=== PATIENT | male | born 1965 | race Caucasian/White ===

== ENCOUNTER 2016-08-06 16:50 | Inpatient (IN) | payer BC ==
[~2016-08-06] VITALS: Ht 154.9 cm; Wt 130.4 kg
[~2016-08-06 16:50] MED LIST: CART240C4 PO; GLIP10TA6 PO; GLUC1000 PO; NEUR600T PO; RIVA20 PO
[2016-08-06 16:52] VITALS: BP 150/75; PULSE 118; RESP 24; TEMP 100.7; O2SAT 87
--- NOTE | 2016-08-06 19:25 | PD ---
HPI Chief Complaint: Edema Time Seen by Provider: 19:21 Travel History International Travel<30 days: No Contact w/Intl Traveler<30days: No Traveled to known affect area: No History of Present Illness HPI 50-year-old male with history of diabetes, CAD, hypertension, COPD presents to the emergency department for evaluation of right lower extremity edema. Patient states he's noticed right lower extremity becoming more edematous and erythematous over the last 3 days. He states a month "or so" ago he developed a blisterlike wound on his right great toe. He has been caring for himself but it has gotten "quite bad." He states that he has not followed up with a primary care provider for. He has not been on any antibiotics for it. He does have diabetic neuropathy and states he does feel the pain from it but also takes pain medication for chronic back pain as well as medication for his neuropathy. He has also been having subjective fever and chills over the last 2 -3 days. No nausea vomiting. No chest pain or tightness. He has no other symptoms to report. PFSH Past Medical History Autoimmune Disease: No Heart Rhythm Problems: Yes (afib) Cancer: No Cardiovascular Problems: Yes High Cholesterol: No Chemotherapy: No Chest Pain: No Congestive Heart Failure: Yes Diabetes: Yes Diminished Hearing: No Endocrine: Yes Genitourinary: No Hypertension: Yes Immune Disorder: No Musculoskeletal: Yes (BACK INJURY- TAKES PAIN MEDS FOR) Neurologic: Yes (neuropathy) Psychiatric: No Reproductive: No Respiratory: Yes Radiation Therapy: No Thyroid Disease: No Past Surgical History Other Surgery: Yes (2ND RIGHT TOE AMPUTATED r/t injury) Social History Alcohol Use: No Tobacco Use: Yes (2 ppd cigs) Substance Use: No Allergies-Medications (Allergen,Severity, Reaction): Coded Allergies: No Known Allergies (Verified , 08/06/16) Reported Meds & Prescriptions Reported Meds & Active Scripts Active Reported Cartia Xt (Diltiazem ER 24 HR) 240 Mg Caper 240 Mg PO DAILY Gabapentin 600 Mg Tab 600 Mg PO BID Glipizide 5 Mg Tab 5 Mg PO BIDAC Take 30 minutes before a meal Metformin (Metformin HCl) 1,000 Mg Tab 1,000 Mg PO BIDPC With meals Xarelto (Rivaroxaban) 20 Mg Tab 20 Mg PO DAILY Review of Systems Except as stated in HPI: all other systems reviewed are Neg Physical Exam Narrative GENERAL: Well-nourished unkempt male patient, in no acute distress SKIN: Warm and dry. Tape bandage around the right great and second toe. There is erythema of the right anterior distal lower extremity with crusted flaking skin. HEAD: Atraumatic. Normocephalic. EYES: Pupils equal and round. No scleral icterus. No injection or drainage. ENT: No nasal bleeding or discharge. Mucous membranes pink and moist. NECK: Trachea midline. No JVD. CARDIOVASCULAR: Tachycardic rate and rhythm. No murmur appreciated. RESPIRATORY: No accessory muscle use. Coarse, diminished to auscultation. Breath sounds equal bilaterally. GASTROINTESTINAL: Abdomen soft, non-tender, nondistended. Hepatic and splenic margins not palpable. MUSCULOSKELETAL: No obvious deformities. No clubbing. No cyanosis. 2+ right lower extremity edema. NEUROLOGICAL: Awake and alert. No obvious cranial nerve deficits. Motor grossly within normal limits. Normal speech. PSYCHIATRIC: Appropriate mood and affect; insight and judgment normal. Data Data Last Documented VS Vital Signs Date Time Temp Pulse Resp B/P Pulse Ox O2 Delivery O2 Flow Rate FiO2 08/06/16 20:21 131/67 08/06/16 16:52 100.7 118 24 87 Room Air Orders Electrocardiogram (08/06/16 19:11) Complete Blood Count With Diff (08/06/16 19:11) Comprehensive Metabolic Panel (08/06/16 19:11) Prothrombin Time / Inr (Pt) (08/06/16 19:11) Act Partial Throm Time (Ptt) (08/06/16 19:11) Lactic Acid Sepsis Protocol (08/06/16 19:11) Magnesium (Mg) (08/06/16 19:11) Ckmb (Isoenzyme) Profile (08/06/16 19:11) Troponin I (08/06/16 19:11) Urinalysis - C+S If Indicated (08/06/16 19:11) Blood Culture (08/06/16 19:11) Chest, Single Ap (08/06/16 19:11) Foot, Complete ([id number]) (08/06/16 ) Us Leg Venous Doppler (08/06/16 ) Labs Laboratory Tests Test 08/06/16 19:52 White Blood Count 26.6 TH/MM3 Red Blood Count 5.24 MIL/MM3 Hemoglobin 14.6 GM/DL Hematocrit 43.2 % Mean Corpuscular Volume 82.4 FL Mean Corpuscular Hemoglobin 27.8 PG Mean Corpuscular Hemoglobin 33.7 % Concent Red Cell Distribution Width 13.6 % Platelet Count 277 TH/MM3 Mean Platelet Volume 7.8 FL Neutrophils (%) (Auto) 84.1 % Lymphocytes (%) (Auto) 6.3 % Monocytes (%) (Auto) 9.2 % Eosinophils (%) (Auto) 0.1 % Basophils (%) (Auto) 0.3 % Neutrophils # (Auto) 22.3 TH/MM3 Lymphocytes # (Auto) 1.7 TH/MM3 Monocytes # (Auto) 2.4 TH/MM3 Eosinophils # (Auto) 0.0 TH/MM3 Basophils # (Auto) 0.1 TH/MM3 CBC Comment AUTO DIFF Differential Total Cells 100 Counted Neutrophils % (Manual) 78 % Band Neutrophils % 8 % Lymphocytes % 7 % Monocytes % 6 % Neutrophils # (Manual) 23.1 TH/MM3 Myelocytes 1 % Differential Comment FINAL DIFF MANUAL Platelet Estimate NORMAL Platelet Morphology Comment NORMAL Red Cell Morphology Comment NORMAL Prothrombin Time 12.3 SEC Prothromb Time International 1.1 RATIO Ratio Activated Partial 36.0 SEC Thromboplast Time Sodium Level 131 MEQ/L Potassium Level 4.3 MEQ/L Chloride Level 93 MEQ/L Carbon Dioxide Level 29.8 MEQ/L Anion Gap 8 MEQ/L Blood Urea Nitrogen 17 MG/DL Creatinine 0.88 MG/DL Estimat Glomerular Filtration 92 ML/MIN Rate Random Glucose 241 MG/DL Lactic Acid Level 1.2 mmol/L Calcium Level 8.5 MG/DL Magnesium Level 1.7 MG/DL Total Bilirubin 0.6 MG/DL Aspartate Amino Transf 9 U/L (AST/SGOT) Alanine Aminotransferase 22 U/L (ALT/SGPT) Alkaline Phosphatase 102 U/L Total Creatine Kinase 61 U/L Troponin I LESS THAN 0.02 NG/ML Total Protein 7.1 GM/DL Albumin 2.8 GM/DL [facility] Medical Decision Making Medical Screen Exam Complete: Yes Emergency Medical Condition: Yes Medical Record Reviewed: Yes Differential Diagnosis Sepsis versus cellulitis versus DVT versus osteomyelitis Narrative Course 50-year-old male presents to the emergency department for evaluation of right lower extremity erythema and edema. Patient is febrile and tachycardic here. Sepsis protocol is initiated in triage. Once a medical bed becomes available, patient will be transferred and care assumed by that provider. Condition: Stable Shima Guadalupe Aug 06, 2016 19:24
[2016-08-06] MEDS ORDERED: CART240C PO (20:08)
[2016-08-06] MEDS ORDERED: METF1000 PO (20:08)
[2016-08-06] MEDS ORDERED: GABA600T PO (20:08)
[2016-08-06] MEDS ORDERED: XARE20TA PO (20:08)
[2016-08-06] MEDS ORDERED: GLIP5TAB8 PO (20:08)
[2016-08-06 20:16] LABS: AUTOMATED NEUTROPHIL # 22.3 TH/MM3 (1.8-7.7); BASOPHIL # 0.1 TH/MM3 (0-0.2); BASOPHIL % 0.3 % (0.0-2.0); EOSINOPHIL % 0.1 % (0.0-4.0); HEMATOCRIT 43.2 % (39.0-51.0); LYMPH % 6.3 % (9.0-44.0); LYMPHOCYTE # 1.7 TH/MM3 (1.0-4.8); MEAN CELL VOLUME 82.4 FL (80.0-100.0); MEAN CORPUSCULAR HEMOGLOBIN 27.8 PG (27.0-34.0); MEAN CORPUSCULAR HGB CONC 33.7 % (32.0-36.0); MONO % 9.2 % (0.0-8.0); NEUT % 84.1 % (16.0-70.0); PLATELET COUNT 277 TH/MM3 (150-450); RED BLOOD COUNT 5.24 MIL/MM3 (4.50-5.90); RED CELL DISTRIBUTION WIDTH 13.6 % (11.6-17.2); WHITE BLOOD COUNT 26.6 TH/MM3 (4.0-11.0)
[2016-08-06 20:18] LABS: HEMO FLAGS AUTO DIFF
[2016-08-06 20:21] VITALS: BP 131/67
--- NOTE | 2016-08-06 20:31 | RADRPT ---
EXAM DATE/TIME: 08/06/2016 19:10 [facility] COMPARISON: No previous studies available for comparison. INDICATIONS : Sepsis MEDICAL HISTORY : Hypertension. Diabetes mellitus type II. SURGICAL HISTORY : None. ENCOUNTER: Initial ACUITY: 3 days PAIN SCORE: 0/10 LOCATION: Bilateral chest FINDINGS: A single view of the chest demonstrates the lungs to be symmetrically aerated without evidence of mas s, infiltrate or effusion. The cardiomediastinal contours are mildly prominent probably due to techn ique. Osseous structures are intact. CONCLUSION: 1. No acute airspace disease or significant effusion. Richard Marrufo MD on August 06, 2016 at 20:28 Board Certified Radiologist. This report was verified electronically.
[2016-08-06 20:37] LABS: INTERNATIONAL NORMALIZED RATIO 1.1 RATIO; PROTHROMBIN TIME - PATIENT 12.3 SEC (9.8-11.6)
[2016-08-06 20:38] LABS: ANION GAP 8 MEQ/L (5-15); AST (GOT) 9 U/L (15-37); BICARBONATE 29.8 MEQ/L (21.0-32.0); BLOOD UREA NITROGEN 17 MG/DL (7-18); CHLORIDE 93 MEQ/L (98-107); GLOMERULAR FILTRATION RATE 92 ML/MIN (>89); MAGNESIUM 1.7 MG/DL (1.5-2.5); POTASSIUM 4.3 MEQ/L (3.5-5.1); SODIUM (NA) 131 MEQ/L (136-145)
--- NOTE | 2016-08-06 20:40 | RADRPT ---
EXAM DATE/TIME: 08/06/2016 19:11 [facility] COMPARISON: FOOT RIGHT COMPLETE ([id number]), December 11, 2013, 9:33. INDICATIONS : Pain and swelling right foot and lower leg MEDICAL HISTORY : Hypertension. Diabetes mellitus type II. SURGICAL HISTORY : Amputation right 2nd toe ENCOUNTER: Initial ACUITY: 3 days PAIN SCORE: 6/10 LOCATION: Right Foot FINDINGS: Comparison is November 2013. Again seen is amputation of the second toe. There is a suspected Charcot type arthropathy at the tarso-metatarsal joints, especially laterally with subchondral erosive changes. T here is soft tissue swelling of the foot and the great toe with chronic appearing erosive changes sheela und the distal phalanx of the right great toe. No acute fracture. CONCLUSION: 1. Previous amputation of the second toe. Development of suspected Charcot type arthropathy at the ta rsometatarsal joints, especially laterally with subchondral cystic changes on both sides of the tarso metatarsal joints. There is associated soft tissue swelling. Cannot exclude chronic low grade infecti on around the tarsometatarsal joints. Richard Marrufo MD on August 06, 2016 at 20:35 Board Certified Radiologist. This report was verified electronically.
[2016-08-06 20:43] LABS: ALKALINE PHOSPHATASE 102 U/L (45-117); ALT (GPT) 22 U/L (12-78); TOTAL BILIRUBIN ADULT 0.6 MG/DL (0.2-1.0)
--- NOTE | 2016-08-06 20:45 | RADRPT ---
EXAM DATE/TIME: 08/06/2016 19:30 [facility] COMPARISON: No previous studies available for comparison. INDICATIONS : Right leg swelling and redness. MEDICAL HISTORY : Hypertension. Congestive heart failure. Neuropathy. Afib. Back pain. Diabetes. SURGICAL HISTORY : Right toe amputation. ENCOUNTER: Initial ACUITY: 1 day PAIN SCORE: 5/10 LOCATION: Right leg. TECHNIQUE: Venous ultrasound of the leg was performed from the inguinal ligament to the proximal calf. Real-artie e, color Doppler and spectral tracing, compression and augmentation techniques were used. FINDINGS: There is normal compressibility of the deep venous system from the inguinal region to the proximal ca lf. No echogenic clot is seen in the lumen of the common femoral, femoral, popliteal, and posterior tibial veins. There is a normal response of the venous system to proximal and distal augmentation an d respiration. CONCLUSION: 1. Negative for deep venous thrombosis. Enlarged lymph nodes in the right inguinal region. Soft tissu e edema. Richard Marrufo MD on August 06, 2016 at 20:42 Board Certified Radiologist. This report was verified electronically.
[2016-08-06 20:46] LABS: CREATINE KINASE 61 U/L (39-308)
[2016-08-06 20:50] LABS: BANDS 8 % (0-6); MYELOCYTES 1 % (0-0); NEUTROPHIL # MANUAL DIFF 23.1 TH/MM3 (1.8-7.7); PLATELET ESTIMATE SMEAR NORMAL (NORMAL); PLATELET MORPHOLOGY NORMAL (NORMAL); POLYS (SEG NEUTROPHILS) 78 % (16-70); SCAN/DIFF FINAL DIFF MANUAL; WBC DIFF SAMPLE 100
--- NOTE | 2016-08-06 21:00 | PD ---
Physical Exam Narrative Patient was seen by my tax assistant and signed out to me. Data Data Last Documented VS Vital Signs Date Time Temp Pulse Resp B/P Pulse Ox O2 Delivery O2 Flow Rate FiO2 08/06/16 20:21 131/67 08/06/16 16:52 100.7 118 24 87 Room Air Orders Electrocardiogram (08/06/16 19:11) Complete Blood Count With Diff (08/06/16 19:11) Comprehensive Metabolic Panel (08/06/16 19:11) Prothrombin Time / Inr (Pt) (08/06/16 19:11) Act Partial Throm Time (Ptt) (08/06/16 19:11) Lactic Acid Sepsis Protocol (08/06/16 19:11) Magnesium (Mg) (08/06/16 19:11) Ckmb (Isoenzyme) Profile (08/06/16 19:11) Troponin I (08/06/16 19:11) Urinalysis - C+S If Indicated (08/06/16 19:11) Blood Culture (08/06/16 19:11) Chest, Single Ap (08/06/16 19:11) Foot, Complete (Vag2ogi) (08/06/16 ) Us Leg Venous Doppler (08/06/16 ) Labs Laboratory Tests Test 08/06/16 19:52 White Blood Count 26.6 TH/MM3 Red Blood Count 5.24 MIL/MM3 Hemoglobin 14.6 GM/DL Hematocrit 43.2 % Mean Corpuscular Volume 82.4 FL Mean Corpuscular Hemoglobin 27.8 PG Mean Corpuscular Hemoglobin 33.7 % Concent Red Cell Distribution Width 13.6 % Platelet Count 277 TH/MM3 Mean Platelet Volume 7.8 FL Neutrophils (%) (Auto) 84.1 % Lymphocytes (%) (Auto) 6.3 % Monocytes (%) (Auto) 9.2 % Eosinophils (%) (Auto) 0.1 % Basophils (%) (Auto) 0.3 % Neutrophils # (Auto) 22.3 TH/MM3 Lymphocytes # (Auto) 1.7 TH/MM3 Monocytes # (Auto) 2.4 TH/MM3 Eosinophils # (Auto) 0.0 TH/MM3 Basophils # (Auto) 0.1 TH/MM3 CBC Comment AUTO DIFF Differential Total Cells 100 Counted Neutrophils % (Manual) 78 % Band Neutrophils % 8 % Lymphocytes % 7 % Monocytes % 6 % Neutrophils # (Manual) 23.1 TH/MM3 Myelocytes 1 % Differential Comment FINAL DIFF MANUAL Platelet Estimate NORMAL Platelet Morphology Comment NORMAL Red Cell Morphology Comment NORMAL Prothrombin Time 12.3 SEC Prothromb Time International 1.1 RATIO Ratio Activated Partial 36.0 SEC Thromboplast Time Sodium Level 131 MEQ/L Potassium Level 4.3 MEQ/L Chloride Level 93 MEQ/L Carbon Dioxide Level 29.8 MEQ/L Anion Gap 8 MEQ/L Blood Urea Nitrogen 17 MG/DL Creatinine 0.88 MG/DL Estimat Glomerular Filtration 92 ML/MIN Rate Random Glucose 241 MG/DL Lactic Acid Level 1.2 mmol/L Calcium Level 8.5 MG/DL Magnesium Level 1.7 MG/DL Total Bilirubin 0.6 MG/DL Aspartate Amino Transf 9 U/L (AST/SGOT) Alanine Aminotransferase 22 U/L (ALT/SGPT) Alkaline Phosphatase 102 U/L Total Creatine Kinase 61 U/L Troponin I LESS THAN 0.02 NG/ML Total Protein 7.1 GM/DL Albumin 2.8 GM/DL [facility] Supervised Visit with LOLY: Yes Interpretation(s) Last Impressions Chest X-Ray 08/06/16 1911 Signed Impressions: Service Date/Time: Saturday, August 06, 2016 19:10 - CONCLUSION: 1. No acute airspace disease or significant effusion. Richard Marrufo MD Lower Extremity Ultrasound 08/06/16 0000 Signed Impressions: Service Date/Time: Saturday, August 06, 2016 19:30 - CONCLUSION: 1. Negative for deep venous thrombosis. Enlarged lymph nodes in the right inguinal region. Soft tissue edema. Richard Marrufo MD Foot X-Ray 08/06/16 0000 Signed Impressions: Service Date/Time: Saturday, August 06, 2016 19:11 - CONCLUSION: 1. Previous amputation of the second toe. Development of suspected Charcot type arthropathy at the tarsometatarsal joints, especially laterally with subchondral cystic changes on both sides of the tarsometatarsal joints. There is associated soft tissue swelling. Cannot exclude chronic low grade infection around the tarsometatarsal joints. Richard Marrufo MD 2100 p.m. CBC WBC 26.6. 84 neutrophil. CMP with sodium 131. Glucose 241. Lactic acid 1.2. Narrative Course Vancomycin 1 g IV. Diagnosis Primary Impression: Cellulitis of right foot Additional Impression: Cellulitis of right leg Admitting Information Admitting Physician Requests: Admit Condition: Stable Grzegorz Bernabe MD Aug 06, 2016 21:00
[2016-08-06] MEDS ORDERED: VANCOMYCIN INJ 1,000 MG in SODIUM CHLOR 0.9% 250 ML INJ 250 ML IV ONE (21:15)
[2016-08-06] MEDS: SODIUM CHLOR 0.9% 1000 ML INJ 1,000 ML IV SCH (21:42)
[2016-08-06] MEDS ORDERED: ONDANSETRON HCL 4 MG/2 ML VIAL IV PRN (21:45)
[2016-08-06] MEDS ORDERED: SODIUM CHLORIDE 0.9% FLUSH 5 ML FLUSH IVF PRN (21:45)
[2016-08-06] MEDS ORDERED: ACETAMINOPHEN 325 MG TAB PO PRN ×2 (21:45→23:15)
[2016-08-06 23:00] VITALS: BP 128/74; PULSE 85; RESP 16; O2SAT 96
[2016-08-06] MEDS ORDERED: GLUCAGON 1 MG/ML VIAL OTHER PRN (23:00)
[2016-08-06] MEDS ORDERED: Vancomycin Consult Pharmacy 1 EA OTHER SCH (23:00)
[2016-08-06] MEDS ORDERED: DEXTROSE 50% IN WATER 50 ML VIAL(D50) IV PUSH PRN (23:00)
[2016-08-06] MEDS ORDERED: SODIUM CHLORIDE 0.9% FLUSH 5 ML FLUSH FLUSH PRN (23:15)
[2016-08-06] MEDS ORDERED: NALOXONE HCL 0.4 MG/ML AMP IV PRN (23:15)
[2016-08-06] MEDS ORDERED: ZOLPIDEM TARTRATE 5 MG TAB PO PRN (23:15)
[2016-08-06] MEDS ORDERED: ONDANSETRON HCL 4 MG/2 ML VIAL IVP PRN (23:15)
[2016-08-07 00:19] LABS: BLOOD, URINE TRACE (NEG); COMMENT (UR) CATH-CULT NOT IND; CULTURE IF INDICATED CATH CULTURE NOT IND; GLUCOSE,URINE 1000 mg/dL (NEG); KETONE, URINE 10 mg/dL (NEG); MUCUS URINE FEW /lpf (OCC); NITRITE,URINE NEG (NEG); SQUAMOUS EPITHELIAL CELL URINE <1 /hpf (0-5); URINE COLOR YELLOW (YELLW/STRAW)
[2016-08-07 05:38] LABS: AUTOMATED NEUTROPHIL # 14.6 TH/MM3 (1.8-7.7); BASOPHIL # 0.1 TH/MM3 (0-0.2); BASOPHIL % 0.4 % (0.0-2.0); EOSINOPHIL # 0.2 TH/MM3 (0-0.4); EOSINOPHIL % 1.2 % (0.0-4.0); HEMATOCRIT 39.5 % (39.0-51.0); HEMO FLAGS DIFF FINAL; LYMPH % 6.5 % (9.0-44.0); LYMPHOCYTE # 1.2 TH/MM3 (1.0-4.8); MEAN CELL VOLUME 82.8 FL (80.0-100.0); MEAN CORPUSCULAR HEMOGLOBIN 28.8 PG (27.0-34.0); MEAN CORPUSCULAR HGB CONC 34.8 % (32.0-36.0); MONO % 10.7 % (0.0-8.0); NEUT % 81.2 % (16.0-70.0); PLATELET COUNT 267 TH/MM3 (150-450); RED BLOOD COUNT 4.77 MIL/MM3 (4.50-5.90); RED CELL DISTRIBUTION WIDTH 13.6 % (11.6-17.2)
[2016-08-07 06:14] LABS: BICARBONATE 29.6 MEQ/L (21.0-32.0); POTASSIUM 4.2 MEQ/L (3.5-5.1)
[2016-08-07] MEDS: INSULIN ASPART SUPPLEMENTAL SCALE SQ SCH ×4 (07:30→20:21)
--- NOTE | 2016-08-07 07:37 | PD.CONS ---
History of Present Illness Service Podiatry Consult Requested By ED Primary Care Physician Jarvis Ford DO Diagnoses: History of Present Illness 50-year-old male with history of diabetes, CAD, hypertension, COPD with blister on R great toe x 1 month that has worsened. He came in stating he has had fever/ chills, and with redness to foot getting worse. MRI pending. IV antibiotics started. He does not follow with a back sizer outpatient, but has history of R 2nd toe amputation at MTP joint 3 years ago. Past Family Social History Allergies: Coded Allergies: No Known Allergies (Verified , 08/06/16) Past Medical History A fib CHF COPD DM with neuropathy HTN Back injury Past Surgical History R 2nd toe amputation Active Ordered Medications Current Medications Medications (Trade) Dose Ordered Sig/Nolberto Route Start Time Stop Time Status Last Admin (NS 1000 ml Inj) 1,000 ml @ 70 mls/hr [id number] IV 08/06/16 21:15 08/06/16 21:42 (NS Flush) 2 ml BID IVF 08/07/16 09:00 (NS Flush) 2 ml UNSCH PRN IVF 08/06/16 21:45 (D50w (Vial) Inj) 25 ml UNSCH PRN IV PUSH 08/06/16 23:00 Glucagon 1 mg 1 mg UNSCH PRN OTHER 08/06/16 23:00 (Vancomycin Consult Pharmacy) 0 ml @ 0 mls/hr UNSCH OTHER 08/06/16 23:00 (Roxicodone) 10 mg Q6H PRN PO 08/06/16 23:00 (Roxicodone) 20 mg Q6H PRN PO 08/06/16 23:00 08/07/16 03:50 (NS Flush) 2 ml UNSCH PRN FLUSH 08/06/16 23:15 (NS Flush) 2 ml BID FLUSH 08/07/16 09:00 (Tylenol) 650 mg Q4H PRN PO 08/06/16 23:15 (Zofran Inj) 4 mg Q6H PRN IVP 08/06/16 23:15 (Ambien) 5 mg HS PRN PO 08/06/16 23:15 (Narcan Inj) 0.4 mg UNSCH PRN IV 08/06/16 23:15 Social History 2 ppd smoker Physical Exam Vital Signs Vital Signs Date Time Temp Pulse Resp B/P Pulse Ox O2 Delivery O2 Flow Rate FiO2 08/06/16 23:00 85 16 128/74 96 Room Air 08/06/16 20:21 131/67 08/06/16 16:52 100.7 118 24 150/75 87 Room Air Laboratory Laboratory Tests Test 08/06/16 08/07/16 08/07/16 19:52 00:00 05:10 White Blood Count 26.6 18.0 Red Blood Count 5.24 4.77 Hemoglobin 14.6 13.7 Hematocrit 43.2 39.5 Mean Corpuscular Volume 82.4 82.8 Mean Corpuscular Hemoglobin 27.8 28.8 Mean Corpuscular Hemoglobin 33.7 34.8 Concent Red Cell Distribution Width 13.6 13.6 Platelet Count 277 267 Mean Platelet Volume 7.8 7.7 Neutrophils (%) (Auto) 84.1 81.2 Lymphocytes (%) (Auto) 6.3 6.5 Monocytes (%) (Auto) 9.2 10.7 Eosinophils (%) (Auto) 0.1 1.2 Basophils (%) (Auto) 0.3 0.4 Neutrophils # (Auto) 22.3 14.6 Lymphocytes # (Auto) 1.7 1.2 Monocytes # (Auto) 2.4 1.9 Eosinophils # (Auto) 0.0 0.2 Basophils # (Auto) 0.1 0.1 CBC Comment AUTO DIFF DIFF FINAL Differential Total Cells 100 Counted Neutrophils % (Manual) 78 Band Neutrophils % 8 Lymphocytes % 7 Monocytes % 6 Neutrophils # (Manual) 23.1 Myelocytes 1 Differential Comment FINAL DIFF MANUAL Platelet Estimate NORMAL Platelet Morphology Comment NORMAL Red Cell Morphology Comment NORMAL Prothrombin Time 12.3 Prothromb Time International 1.1 Ratio Activated Partial 36.0 Thromboplast Time Sodium Level 131 133 Potassium Level 4.3 4.2 Chloride Level 93 95 Carbon Dioxide Level 29.8 29.6 Anion Gap 8 8 Blood Urea Nitrogen 17 15 Creatinine 0.88 0.66 Estimat Glomerular Filtration 92 128 Rate Random Glucose 241 273 Lactic Acid Level 1.2 Calcium Level 8.5 8.4 Magnesium Level 1.7 Total Bilirubin 0.6 Aspartate Amino Transf 9 (AST/SGOT) Alanine Aminotransferase 22 (ALT/SGPT) Alkaline Phosphatase 102 Total Creatine Kinase 61 Troponin I LESS THAN 0.02 Total Protein 7.1 Albumin 2.8 Urine Color YELLOW Urine Turbidity CLEAR Urine pH 6.0 Urine Specific [place] 1.016 Urine Protein 100 Urine Glucose (UA) 1000 Urine Ketones 10 Urine Occult Blood TRACE Urine Nitrite NEG Urine Bilirubin NEG Urine Urobilinogen LESS THAN 2.0 Urine Leukocyte Esterase NEG Urine RBC 4 Urine WBC 1 Urine Squamous Epithelial <1 Cells Urine Mucus FEW Microscopic Urinalysis Comment CATH-CULT NOT IND Date/Time Procedure Status Source Growth 08/06/16 19:53 Aerobic Blood Culture Received Blood Peripheral Pending 08/06/16 19:53 Anaerobic Blood Culture Received Blood Peripheral Pending Result Diagram: 08/07/16 0510 08/07/16 0510 Imaging Last Impressions Chest X-Ray 08/06/16 1911 Signed Impressions: Service Date/Time: Saturday, August 06, 2016 19:10 - CONCLUSION: 1. No acute airspace disease or significant effusion. Richard Marrufo MD Lower Extremity Ultrasound 08/06/16 0000 Signed Impressions: Service Date/Time: Saturday, August 06, 2016 19:30 - CONCLUSION: 1. Negative for deep venous thrombosis. Enlarged lymph nodes in the right inguinal region. Soft tissue edema. Richard Marrufo MD Foot X-Ray 08/06/16 0000 Signed Impressions: Service Date/Time: Saturday, August 06, 2016 19:11 - CONCLUSION: 1. Previous amputation of the second toe. Development of suspected Charcot type arthropathy at the tarsometatarsal joints, especially laterally with subchondral cystic changes on both sides of the tarsometatarsal joints. There is associated soft tissue swelling. Cannot exclude chronic low grade infection around the tarsometatarsal joints. Richard Marrufo MD Assessment and Plan Assessment and Plan Cellulitis R great toe MRI pending Recommend vascular consultation, ie: diabetes, 2ppd smoker, history of previous amputation Continue IV antibiotics Mariano Kearney DPM Aug 07, 2016 07:37
[2016-08-07] MEDS: SODIUM CHLORIDE 0.9% FLUSH 5 ML FLUSH FLUSH SCH ×2 (07:48→20:21)
[2016-08-07 08:15] VITALS: BP 124/66; PULSE 82; RESP 20; O2SAT 96
[2016-08-07] MEDS: SODIUM CHLORIDE 0.9% FLUSH 5 ML FLUSH IVF SCH ×2 (09:00→20:21)
--- NOTE | 2016-08-07 09:06 | MH ---
cc: FRANKLIN FORD D.O.,TAI Aldana MD DATE OF ADMISSION 08/06/[address] Franklin Ford CHIEF COMPLAINT Pain in the right great toe. HISTORY OF PRESENT ILLNESS This is a pleasant 50-year-old male who had a blister on his right toe which started about a month ago. This progressively worsened and he has been doctoring it at home. However, over the last several days, the toe has become more macerated, it has been bleeding. He has had worsening pain, swelling and erythema around the toe and all the way up to the right mid calf. Today he felt nauseated. He felt chilled, so he has decided to seek medical attention. He has not sought any medical attention for this until this point. He states he has been busy with work and thought he could manage it on his own. He was seen in the emergency room and is being admitted for further care. He states he is on Oxycodone 20 mg four times a day for his back. Some times he takes an extra dose because of the pain in his leg. He also takes Neurontin for the neuropathy. He has had a previous toe infection several years ago and required an amputation of the second digit on the right foot already. MEDICATIONS On admission, include: 1. Xarelto 20 mg daily 2. Inhalers 3. Oxycodone 4. Cartia 240 daily 5. Neurontin 600 mg twice a day 6. Glipizide 5 mg twice a day 7. Metformin 1000 mg twice a day ALLERGIES None PAST MEDICAL HISTORY Significant for: 1. Atrial fibrillation 2. Chronic back pain 3. Diabetes 4. Obesity 5. Hypertension 6. Osteomyelitis of the second toe requiring surgical intervention and amputation 7. Diabetes mellitus type 2 8. COPD PAST SURGICAL HISTORY The right second toe amputated. SOCIAL HISTORY Denies alcohol or substance abuse. Admits to one to two packs of cigarettes a day. Works in construction. FAMILY HISTORY Noncontributory this admission. REVIEW OF SYSTEMS The patient states he has not been checking his blood sugars like he should, but normally stays under 300 when he does check it. He has been using his rescue inhalers more often. He does have some wheezing occasionally. He denies any other significant changes in his overall health or 10-point review of systems. PHYSICAL EXAMINATION VITAL SIGNS: T-max 100.7, pulse 118, now it is down to 91, blood pressure is 131/67, pulse ox is 87 on room air. GENERAL: This is a 50-year-old male sitting up in bed. He does not appear to be in distress. HEAD, EYES, EARS, NOSE, AND THROAT: Mucous membranes are moist. There is no jaundice. NECK: Supple. CARDIOVASCULAR: Regular rate and rhythm. RESPIRATORY: Diffuse wheezing. GASTROINTESTINAL: Morbidly obesity, no tenderness, guarding or rebound. GENITOURINARY: No CVA tenderness. No suprapubic tenderness. MUSCULOSKELETAL: Right lower extremity without significant deformity or swelling. Distal pulses are palpable. Homans is negative. Right lower extremity shows at least 2+ edema of the calf and foot. There is erythema around the mid calf and some tenderness more medially. The right foot is markedly swollen. There appears to be a large fluid collection on the bottom of the foot as well. The right great toe is macerated with the skin pealed back almost half way down the toe. There is some bleeding and some surrounding erythema. NEUROLOGIC: The patient is awake, alert and oriented times four. Speech is clear and fluid. He moves all extremities freely. Gait and station is not tested. INVESTIGATIONS INR is 1.1, white count 26.6, hemoglobin is 14.6, platelets are 277, bands were 8. Sodium 131, potassium 4.3, random glucose is 241, lactic acid is 1.2, troponin was negative, albumen was 3.8. IMAGING Chest x-ray, no acute air space disease or effusion. Foot x-ray shows a previous amputation of the second toe suspected Charcot arthropathy of the tarsometatarsal joints. An ultrasound of the right lower extremity shows no DVT. EKG showed sinus rhythm, some Q-waves in the septal leads, rate was 91. IMPRESSION 1. Diabetic infection of the right great toe and cellulitis of the right lower extremity. 2. Charcot deformity of the right foot. 3. Diabetes mellitus 4. COPD 5. History of atrial fibrillation, currently in sinus rhythm. 6. Obesity 7. Chronic pain syndrome with narcotic dependence. 8. Hypoxia 9. Hyponatremia DISCUSSION The patient is admitted to Dr. Pang's service. The patient meets inpatient criteria due to the severity of his infection without which hospitalization he would be at a high risk for developing sepsis and requiring further interventions. During his hospital stay, he will be placed on oxygen per protocol. He is already anticoagulated with Xarelto. He was started on Vancomycin. We will consult pharmacy to assist with dosing of this. We will consult podiatry to evaluate him. He may require surgical intervention depending on how extensive the tissue loss is at the tip of the toe. We will place the patient on an insulin sliding scale and monitor his blood sugars closely. We will provide analgesics and antiemetics as needed. We will follow up labs in the morning and we will make further recommendations as his cases progresses. His expected length of stay is four to five days. Anticipate discharge to home. Dictated by: Moshe Marin PA-C MD BAKARI Garcia/DJChucky /11:07 PM /8:38 AM PT is seen & Examined d/w PT d/w Moshe galeano Orders empiric abx consult podiatry/ID/vascular surgery analgesic see H&P will f/u Tai Pang MD Aug 07, 2016 10:39 MTDD
[2016-08-07] MEDS ORDERED: GADODIAMIDE PF 287 MG/ML 5 ML VIAL (for RAD MRI) IV ONE (10:31)
--- NOTE | 2016-08-07 10:39 | HHI.PR ---
Objective Objective Results - Vital Signs Date Time Temp Pulse Resp B/P Pulse Ox O2 Delivery O2 Flow Rate FiO2 08/07/16 08:15 82 20 124/66 96 Room Air 08/07/16 08:15 Room Air 08/06/16 23:00 85 16 128/74 96 Room Air 08/06/16 20:21 131/67 08/06/16 16:52 100.7 118 24 150/75 87 Room Air Result Diagram: 08/07/16 0510 08/07/16 0510 Other Results Laboratory Tests Test 08/06/16 08/07/16 08/07/16 19:52 00:00 05:10 White Blood Count 26.6 18.0 Red Blood Count 5.24 4.77 Hemoglobin 14.6 13.7 Hematocrit 43.2 39.5 Mean Corpuscular Volume 82.4 82.8 Mean Corpuscular Hemoglobin 27.8 28.8 Mean Corpuscular Hemoglobin 33.7 34.8 Concent Red Cell Distribution Width 13.6 13.6 Platelet Count 277 267 Mean Platelet Volume 7.8 7.7 Neutrophils (%) (Auto) 84.1 81.2 Lymphocytes (%) (Auto) 6.3 6.5 Monocytes (%) (Auto) 9.2 10.7 Eosinophils (%) (Auto) 0.1 1.2 Basophils (%) (Auto) 0.3 0.4 Neutrophils # (Auto) 22.3 14.6 Lymphocytes # (Auto) 1.7 1.2 Monocytes # (Auto) 2.4 1.9 Eosinophils # (Auto) 0.0 0.2 Basophils # (Auto) 0.1 0.1 CBC Comment AUTO DIFF DIFF FINAL Differential Total Cells 100 Counted Neutrophils % (Manual) 78 Band Neutrophils % 8 Lymphocytes % 7 Monocytes % 6 Neutrophils # (Manual) 23.1 Myelocytes 1 Differential Comment FINAL DIFF MANUAL Platelet Estimate NORMAL Platelet Morphology Comment NORMAL Red Cell Morphology Comment NORMAL Prothrombin Time 12.3 Prothromb Time International 1.1 Ratio Activated Partial 36.0 Thromboplast Time Sodium Level 131 133 Potassium Level 4.3 4.2 Chloride Level 93 95 Carbon Dioxide Level 29.8 29.6 Anion Gap 8 8 Blood Urea Nitrogen 17 15 Creatinine 0.88 0.66 Estimat Glomerular Filtration 92 128 Rate Random Glucose 241 273 Lactic Acid Level 1.2 Calcium Level 8.5 8.4 Magnesium Level 1.7 Total Bilirubin 0.6 Aspartate Amino Transf 9 (AST/SGOT) Alanine Aminotransferase 22 (ALT/SGPT) Alkaline Phosphatase 102 Total Creatine Kinase 61 Troponin I LESS THAN 0.02 Total Protein 7.1 Albumin 2.8 Urine Color YELLOW Urine Turbidity CLEAR Urine pH 6.0 Urine Specific [place] 1.016 Urine Protein 100 Urine Glucose (UA) 1000 Urine Ketones 10 Urine Occult Blood TRACE Urine Nitrite NEG Urine Bilirubin NEG Urine Urobilinogen LESS THAN 2.0 Urine Leukocyte Esterase NEG Urine RBC 4 Urine WBC 1 Urine Squamous Epithelial <1 Cells Urine Mucus FEW Microscopic Urinalysis Comment CATH-CULT NOT IND Date/Time Procedure Status Source Growth 08/06/16 19:53 Aerobic Blood Culture Received Blood Peripheral Pending 08/06/16 19:53 Anaerobic Blood Culture Received Blood Peripheral Pending Physical Exam Physical Exam PT is seen & Examined d/w PT d/w Moshe see Orders empiric abx consult podiatry/ID/vascular surgery analgesic see H&P will f/u Arjun Pang MD Aug 07, 2016 10:39
[2016-08-07 11:39] VITALS: BP 128/70; PULSE 72; RESP 16; O2SAT 98
[2016-08-07] MEDS: HYDROmorphone HCL PF 1 MG/ML VIAL IV PUSH PRN ×3 (11:40→22:25)
[2016-08-07] MEDS: ENOXAPARIN SODIUM 40 MG/0.4 ML SYRINGE SQ SCH (11:40)
[2016-08-07] MEDS: SODIUM CHLOR 0.9% 1000 ML INJ 1,000 ML IV SCH (11:42)
[2016-08-07] MEDS: VANCOMYCIN INJ 1,750 MG in SODIUM CHLORID 0.9% 500 ML INJ 500 ML IV SCH ×2 (12:29→22:42)
--- NOTE | 2016-08-07 12:59 | RADRPT ---
EXAM DATE/TIME: 08/07/2016 09:48 [facility] COMPARISON: FOOT RIGHT COMPLETE ([id number]), December 11, 2013, 9:33. INDICATIONS : Right great toe wound and swelling. CONTRAST: 25 cc Omniscan (gadodiamide) IV MEDICAL HISTORY : Diabetes mellitus type 2. Hypertension. SURGICAL HISTORY : Right 2nd toe removed. ENCOUNTER: Subsequent ACUITY: 4-6 days PAIN SCORE: 0/10 LOCATION: Right foot. TECHNIQUE: Multiplanar, multisequence MRI examination was performed without contrast and after the intravenous a dministration of gadolinium. FINDINGS: Diffuse soft tissue swelling and ulceration seen distally of the great toe. The distal portions of th e distal phalanx are destroyed and there is marrow edema and T1 signal abnormality throughout the rem ainder of the bone compatible with osteomyelitis. Nothing convincing for osteomyelitis of the proxima l phalanx of the great toe. Previous amputation of the second toe is at the level of the metatarsophalangeal joint. No osteomyeli tis of the second metatarsal head. Third through fifth toes are without osteomyelitis. There is diffuse soft tissue edema of the right midfoot and forefoot, most severe subcutaneous and do rsal. A few subcentimeter pockets of rim enhancing fluid are seen in the subcutaneous tissues of the plantar/lateral midfoot at the level of the fifth tarsometatarsal joint, for example series 9 image 1 3.. Very severe arthropathy is seen of Lisfranc joint, preferentially involving the third, fourth and fifth tarsometatarsal joints, most likely neuropathic but there are extensive bone signal changes, a nd given the soft tissue edema/swelling and apparent small abscesses plantar to Lisfranc joint, infec eligio Lisfranc arthropathy is not excludable. CONCLUSION: 1. Severe ulceration of the great toe soft tissues. There is osteomyelitis essentially throughout the distal phalanx. 2. Suspected small subcutaneous abscess pockets plantar to lateral Lisfranc joint and seen in the set ting of a very severe destructive arthropathy of the third, fourth and fifth tarsometatarsal joints. Features are concerning for septic arthropathy superimposed on neuropathic changes. Moshe Londono MD on August 07, 2016 at 12:39 Board Certified Radiologist. This report was verified electronically.
[2016-08-07] MEDS: glipiZIDE 5 MG TAB PO SCH (17:48)
[2016-08-07 18:05] VITALS: BP 148/86; PULSE 83; RESP 19; TEMP 98; O2SAT 97
[2016-08-07 18:07] VITALS: BP 148/86; PULSE 83; RESP 19; TEMP 98; O2SAT 97
--- NOTE | 2016-08-07 18:11 | EKG ---
Date Performed: 08/06/2016 Time Performed: 23:01:43 PTAGE: 50 years EKG: Sinus rhythm SEPTAL MYOCARDIAL INFARCTION When compared to previous tracing, the patient is no longer in Atrial f lutter. ABNORMAL ECG PREVIOUS TRACING : 12/19/2015 11.02 DOCTOR: Kathy Mendoza Interpretating Date/Time 08/07/2016 18:10:51
--- NOTE | 2016-08-07 19:40 | PD.POD ---
Subjective Podiatric Problems R great toe osteomyelitis Past Med/Surg/Social History Social History Smoking Status: Current Every Day Smoker Objective Vital Signs Vital Signs Date Time Temp Pulse Resp B/P Pulse Ox O2 Delivery O2 Flow Rate FiO2 08/07/16 18:07 98.0 83 19 148/86 97 08/07/16 18:05 98.0 83 19 148/86 97 08/07/16 11:39 72 16 128/70 98 08/07/16 08:15 82 20 124/66 96 Room Air 08/07/16 08:15 Room Air 08/06/16 23:00 85 16 128/74 96 Room Air 08/06/16 20:21 131/67 Coded Allergies: No Known Allergies (Verified , 08/06/16) Exam-Podiatry Remarks History of 2nd toe amputation, healed well. Distal R hallux with purulence and palpable bone. Sausaging of hallux noted. Erythema locally to digit. Diffuse edema. Warm skin temperature. Assessment & Plan A/P Osteomyelitis R hallux To OR for amputation R hallux. Will attempt distal amputation if soft tissue viable and amenable to such, but tissue quality is questionable NPO after 7 am, early breakfast ok tomorrow. Surgery 330pm Mariano Kearney DPM Aug 07, 2016 19:40
[2016-08-07 20:00] VITALS: BP 141/76; PULSE 86; RESP 17; TEMP 98.5; O2SAT 96
[2016-08-07] MEDS: GABAPENTIN 300 MG CAP PO SCH (20:21)
[2016-08-08] VITALS (7 sets, daily range): BP systolic 122–161; BP diastolic 66–97; PULSE 70–86; RESP 17–18; TEMP 96.4–99.3; O2SAT 96–100
[2016-08-08] MEDS: SODIUM CHLOR 0.9% 1000 ML INJ 1,000 ML IV SCH ×3 (01:17→17:48)
[2016-08-08] MEDS: INSULIN ASPART SUPPLEMENTAL SCALE SQ SCH ×4 (06:48→20:48)
[2016-08-08] MEDS: glipiZIDE 5 MG TAB PO SCH (07:00)
[2016-08-08] MEDS: SODIUM CHLORIDE 0.9% FLUSH 5 ML FLUSH IVF SCH ×2 (09:00→20:49)
[2016-08-08] MEDS: DILTIAZEM-CD 240 MG CAP ER PO SCH (09:11)
[2016-08-08] MEDS: SODIUM CHLORIDE 0.9% FLUSH 5 ML FLUSH FLUSH SCH ×2 (09:12→20:49)
[2016-08-08] MEDS: GABAPENTIN 300 MG CAP PO SCH ×2 (09:12→22:52)
[2016-08-08] MEDS: HYDROmorphone HCL PF 1 MG/ML VIAL IV PUSH PRN ×2 (09:13→18:05)
[2016-08-08 09:23] LABS: HEMATOCRIT 42.7 % (39.0-51.0); MEAN CELL VOLUME 83.5 FL (80.0-100.0); MEAN CORPUSCULAR HEMOGLOBIN 27.7 PG (27.0-34.0); MEAN CORPUSCULAR HGB CONC 33.2 % (32.0-36.0); PLATELET COUNT 288 TH/MM3 (150-450); RED BLOOD COUNT 5.11 MIL/MM3 (4.50-5.90); RED CELL DISTRIBUTION WIDTH 13.5 % (11.6-17.2); REVIEW FLAG FINAL; WHITE BLOOD COUNT 13.8 TH/MM3 (4.0-11.0)
[2016-08-08 09:53] LABS: BICARBONATE 30.7 MEQ/L (21.0-32.0); POTASSIUM 4.2 MEQ/L (3.5-5.1)
[2016-08-08] MEDS: ENOXAPARIN SODIUM 40 MG/0.4 ML SYRINGE SQ SCH (11:00)
[2016-08-08] MEDS: VANCOMYCIN INJ 1,750 MG in SODIUM CHLORID 0.9% 500 ML INJ 500 ML IV SCH ×2 (11:39→22:53)
[2016-08-08] MEDS ORDERED: PROPOFOL 200 MG/20 ML AMP IV ONE (12:00)
--- NOTE | 2016-08-08 14:03 | PD.CAR.PN ---
CVT Progress Note Subjective/Hospital Course: patient seen Full consult dictated Thanks J Objective: Vital Signs Date Time Temp Pulse Resp B/P Pulse Ox O2 Delivery O2 Flow Rate FiO2 08/08/16 12:00 96.4 70 18 155/79 96 08/08/16 08:00 97.9 86 17 139/88 99 08/08/16 03:32 97.6 72 17 161/85 96 08/08/16 00:00 97.9 71 17 122/66 96 08/07/16 20:00 98.5 86 17 141/76 96 08/07/16 18:07 98.0 83 19 148/86 97 08/07/16 18:05 98.0 83 19 148/86 97 Labs: Laboratory Tests Test 08/08/16 08:47 White Blood Count 13.8 TH/MM3 (4.0-11.0) Red Blood Count 5.11 MIL/MM3 (4.50-5.90) Hemoglobin 14.2 GM/DL (13.0-17.0) Hematocrit 42.7 % (39.0-51.0) Mean Corpuscular Volume 83.5 FL (80.0-100.0) Mean Corpuscular Hemoglobin 27.7 PG (27.0-34.0) Mean Corpuscular Hemoglobin 33.2 % Concent (32.0-36.0) Red Cell Distribution Width 13.5 % (11.6-17.2) Platelet Count 288 TH/MM3 (150-450) Mean Platelet Volume 8.0 FL (7.0-11.0) Sodium Level 135 MEQ/L (136-145) Potassium Level 4.2 MEQ/L (3.5-5.1) Chloride Level 97 MEQ/L (98-107) Carbon Dioxide Level 30.7 MEQ/L (21.0-32.0) Anion Gap 7 MEQ/L (5-15) Blood Urea Nitrogen 13 MG/DL (7-18) Creatinine 0.69 MG/DL (0.60-1.30) Estimat Glomerular Filtration 122 ML/MIN Rate (>89) Random Glucose 285 MG/DL (74-106) Calcium Level 8.3 MG/DL (8.5-10.1) Result Diagram: 08/08/16 0847 08/08/16 0847 Pierre Bernal MD Aug 08, 2016 14:03
--- NOTE | 2016-08-08 15:15 | HHI.IDPN ---
Note Infectious Disease Note Patient in OR will attempt to see later today or in am. Vital Signs Date Time Temp Pulse Resp B/P Pulse Ox O2 Delivery O2 Flow Rate FiO2 08/08/16 12:00 96.4 70 18 155/79 96 08/08/16 10:27 96 21 08/08/16 08:00 97.9 86 17 139/88 99 08/08/16 03:32 97.6 72 17 161/85 96 08/08/16 00:00 97.9 71 17 122/66 96 08/07/16 20:00 98.5 86 17 141/76 96 08/07/16 18:07 98.0 83 19 148/86 97 08/07/16 18:05 98.0 83 19 148/86 97 Laboratory Tests Test 08/08/16 08:47 White Blood Count 13.8 TH/MM3 Red Blood Count 5.11 MIL/MM3 Hemoglobin 14.2 GM/DL Hematocrit 42.7 % Mean Corpuscular Volume 83.5 FL Mean Corpuscular Hemoglobin 27.7 PG Mean Corpuscular Hemoglobin 33.2 % Concent Red Cell Distribution Width 13.5 % Platelet Count 288 TH/MM3 Mean Platelet Volume 8.0 FL Sodium Level 135 MEQ/L Potassium Level 4.2 MEQ/L Chloride Level 97 MEQ/L Carbon Dioxide Level 30.7 MEQ/L Anion Gap 7 MEQ/L Blood Urea Nitrogen 13 MG/DL Creatinine 0.69 MG/DL Estimat Glomerular Filtration 122 ML/MIN Rate Random Glucose 285 MG/DL Calcium Level 8.3 MG/DL Rayne Vega MD Aug 08, 2016 15:15
--- NOTE | 2016-08-08 15:31 | HHI.PR ---
Subjective History of Present Illness I am okay Pain is in control/pain meds are helping No nausea or vomiting No fever or chills Currently nothing by mouth for foot surgery Offers no other complaints Vitals/Results Intake & Output 08/07/16 08/07/16 08/08/16 15:00 23:00 07:00 Intake Total 360 ml Output Total 250 ml 700 ml Balance 110 ml -700 ml Intake Oral 360 ml Output Urine Total 250 ml 700 ml # Voids 1 # Bowel Movements 1 Vital Signs Vital Signs Date Time Temp Pulse Resp B/P Pulse Ox O2 Delivery O2 Flow Rate FiO2 08/08/16 12:00 96.4 70 18 155/79 96 08/08/16 10:27 96 21 08/08/16 08:00 97.9 86 17 139/88 99 08/08/16 03:32 97.6 72 17 161/85 96 08/08/16 00:00 97.9 71 17 122/66 96 08/07/16 20:00 98.5 86 17 141/76 96 08/07/16 18:07 98.0 83 19 148/86 97 08/07/16 18:05 98.0 83 19 148/86 97 CBC/BMP: 08/08/16 0847 08/08/16 0847 Lab Results Laboratory Tests Test 08/08/16 08:47 White Blood Count 13.8 TH/MM3 Red Blood Count 5.11 MIL/MM3 Hemoglobin 14.2 GM/DL Hematocrit 42.7 % Mean Corpuscular Volume 83.5 FL Mean Corpuscular Hemoglobin 27.7 PG Mean Corpuscular Hemoglobin 33.2 % Concent Red Cell Distribution Width 13.5 % Platelet Count 288 TH/MM3 Mean Platelet Volume 8.0 FL Sodium Level 135 MEQ/L Potassium Level 4.2 MEQ/L Chloride Level 97 MEQ/L Carbon Dioxide Level 30.7 MEQ/L Anion Gap 7 MEQ/L Blood Urea Nitrogen 13 MG/DL Creatinine 0.69 MG/DL Estimat Glomerular Filtration 122 ML/MIN Rate Random Glucose 285 MG/DL Calcium Level 8.3 MG/DL Physical Exam General General Appearance: No Acute Distress, Comfortable, Obese Eyes Eye Exam: Pupils Equal, Sclera White, Extraocular Movement Intact Ears & Nose Ears & Nose Exam: Nasal Mucosa [place] Throat Throat Exam: Oral Mucosa [place] & Moist Neck Neck Exam: Neck Supple, Trachea Midline Pulmonary Resp Exam: Clear Bilaterally, Breath Sounds Equal Cardiology CV Exam: Regular, Normal Sinus Rhythm Gastrointestinal/Abdomen GI Exam: Soft, Non-Tender, Bowel Sounds Present Musculoskeletal MS Exam: Atrophy MS Remarks Right for dressing intact Integumentary Skin Exam: Warm, Dry Extremeties Extremities Exam: No Edema, Pedal Pulses Palpable Neurologic Neuro Exam: Alert, Awake, Oriented, Speech Clear, Moving All Extremities PUD Prophylasis PUD Prophylaxis: Protonix Assessment/Plan Assessment/Plan IMPRESSION 1. Diabetic infection of the right great toe and cellulitis of the right lower extremity. 2. Charcot deformity of the right foot. 3. Diabetes mellitus 4. COPD 5. History of atrial fibrillation, currently in sinus rhythm. 6. Obesity 7. Chronic pain syndrome with narcotic dependence. 8. Hypoxia 9. Hyponatremia DISCUSSION MRI foot noted, positive for osteo right big toe Podiatry input appreciated Continue empiric IV antibiotic ID follow-up Continue analgesics Wound care Currently nothing by mouth, after surgery resume diabetic diet Continue insulin Accu-Cheks UC and daily at bedtime Blood pressure control Counselled patient against smoking/advised to completely abstain from it Hazards of continuous smoking were explained in detail PPI DVT prophylaxis Discussed patient Will follow Arjun Pang MD Aug 08, 2016 15:31
[2016-08-08] MEDS ORDERED: LIDOCAINE HCL 2% 50 ML VIAL ONE (18:49)
[2016-08-08] MEDS ORDERED: BUPIVACAINE HCL PF 0.5% 30 ML VIAL ONE (18:49)
--- NOTE | 2016-08-08 20:24 | HHI.PR ---
Immediate Post Op Note Procedure Date: Aug 08, 2016 Pre Op Diagnosis: osteomyelitis R great toe Post Op Diagnosis: same Surgeon: Mariano Kearney DPM Library Consultant(s): staff Procedure: Amputation R great toe Findings: Consistent with diagnosis: plantar distal ulceration with palpable bone and purulence to plantar aspect of hallux, traveling plantarly to base of proximal phalanx. Plantar hallux tissue nonviable, nonbleeding. Disarticulation of hallux at MTP joint. Viable tissue noted at level of MTP joint. Irrigation with NS, followed by primary closure with 2-0 nylon suture WBAT in surgical shoe R foot. Additional Information: All infected tissue removed, no further necrotic tissue or infection remained in wound bed prior to closure Complications: None Specimen(s) removed: R great toe to pathology Estimated blood loss: Minimal Anesthesia: General, Local (10mL 2% lidocaine plain) Drains: None IVF Tourniquet time (min at mmHg) n/a Patient to: PACU Patient Condition: Good Date/Time of Procedure: SEE SURGICAL CARE RECORD Mariano Kearney DPM Aug 08, 2016 20:24
--- NOTE | 2016-08-08 20:35 | MB ---
cc: [facility] DATE OF CONSULTATION: 08/08/[address] Haley REASON FOR CONSULTATION Peripheral vascular disease, diabetes mellitus, gangrene of the left foot. HISTORY OF PRESENT DISEASE: This 50 year-old obese male with a history of diabetes, coronary artery disease, hypertension, presents with a blister on right great toe. This has been there for about a month and now it is worse, and the patient clearly has an infection here and distal osteomyelitis. The patient already has a history of second right toe amputation at the level of the metatarsal phalangeal joint several years ago. The question arises about vascular disease and possible implications to the healing process. PAST MEDICAL HISTORY: 1. Hypertension. 2. COPD. 3. CHF. 4. Neuropathy. PAST SURGICAL HISTORY: 1. Second toe amputation. MEDICATIONS: Multiple and can be found in the chart. The patient is not very compliant with his medical care. SOCIAL HISTORY: The patient smokes two packs per day and is a tobacco abuser. PHYSICAL EXAMINATION: Reveals a 50-year-old obese male in no acute distress. Head: Normocephalic. No trauma to the head. Pupils equal and reactive. Extraocular muscles intact. Neck is short, stocky. No bruits. Chest: Bilateral breath sounds decreased over both lung nassar. The patient clearly has moderate COPD already. Heart: Regular rhythm. Abdomen: Obese, soft. Active bowel sounds. Extremities: The patient actually has palpable femoral popliteal, dorsalis pedis and posterior tibial pulses. He also has dopplerable, of course. pulses. He does not have an acute vascular deficit noted. Neurologic: Grossly intact. Gangrenous ulcer of the left greater toe as above-noted. IMPRESSION/RECOMMENDATIONS The patient is a 50-year-old male with diabetes mellitus, hypertension, smoking history. I have reviewed CTA from about a year ago and this study does not reveal any significant vascular disease in this patient. The patient has a clean aorta and runoff vessels with possible occlusion of peroneal artery on the left but other than that the patient has a clean arteriogram with minimal calcifications and narrowing. Therefore based on this an elevated creatinine, I would not recommend a repeat arteriogram on this gentleman. I believe amputation should be carried out and I believe it will heal just fine. If the patient has problems in the future we can always order an arteriogram but I believe the risks, benefit ratio at this point goes into the risk category considering his renal function and other issues, and a nearly normal physical exam. I thank you very much for the referral. Pierre GONZALES /5:43 PM /8:15 PM
--- NOTE | 2016-08-08 21:38 | RADRPT ---
EXAM DATE/TIME: 08/08/2016 20:35 [facility] COMPARISON: FOOT RIGHT COMPLETE ([id number]), August 06, 2016, 19:11. INDICATIONS : Post op right foot surgery. MEDICAL HISTORY : Diabetes mellitus type 2. Hypertension. SURGICAL HISTORY : Right 2nd toe previously removed. ENCOUNTER: Initial ACUITY: 1 day PAIN SCORE: 2/10 LOCATION: Right foot. FINDINGS: AP, lateral and oblique views of the right foot were obtained and demonstrate the patient is status p ost interval amputation of the first digit to the level of the metatarsal. There is a more remote amp utation of the second digit to the level of the metatarsal. Degenerative changes are noted involving the metatarsal tarsal joints and intertarsal joints with sclerosis and spurring. A small to moderate spur is noted off the inferior calcaneus. There is diffuse soft tissue swelling over the distal foot. CONCLUSION: Interval post surgical changes status post amputation of the first digit. Wilmer Grande MD on August 08, 2016 at 21:34 Board Certified Radiologist. This report was verified electronically.
[2016-08-08] MEDS ORDERED: DO NOT ADM ANY ANTICOAGULANT DRUGS XX PRN (21:45)
[2016-08-08] MEDS ORDERED: PHARMACY ORDERED LAB XX ONE (22:45)
[2016-08-09 00:20] VITALS: BP 144/80; PULSE 81; RESP 18; TEMP 98.7; O2SAT 90
[2016-08-09] MEDS: HYDROmorphone HCL PF 1 MG/ML VIAL IV PUSH PRN ×4 (01:36→21:46)
[2016-08-09 04:14] VITALS: BP 130/72; PULSE 69; RESP 18; TEMP 97.6; O2SAT 98
[2016-08-09] MEDS: glipiZIDE 5 MG TAB PO SCH ×2 (05:44→15:12)
[2016-08-09] MEDS: INSULIN ASPART SUPPLEMENTAL SCALE SQ SCH ×4 (05:53→21:40)
[2016-08-09] MEDS: SODIUM CHLOR 0.9% 1000 ML INJ 1,000 ML IV SCH ×2 (05:55→20:45)
[2016-08-09 07:42] LABS: HEMATOCRIT 40.7 % (39.0-51.0); MEAN CELL VOLUME 84.3 FL (80.0-100.0); MEAN CORPUSCULAR HEMOGLOBIN 27.6 PG (27.0-34.0); MEAN CORPUSCULAR HGB CONC 32.7 % (32.0-36.0); PLATELET COUNT 264 TH/MM3 (150-450); RED BLOOD COUNT 4.82 MIL/MM3 (4.50-5.90); RED CELL DISTRIBUTION WIDTH 13.7 % (11.6-17.2); REVIEW FLAG FINAL; WHITE BLOOD COUNT 11.2 TH/MM3 (4.0-11.0)
[2016-08-09 08:00] VITALS: BP 137/72; PULSE 72; RESP 20; TEMP 97.3; O2SAT 98
[2016-08-09] MEDS: SODIUM CHLORIDE 0.9% FLUSH 5 ML FLUSH IVF SCH (09:00)
[2016-08-09] MEDS: SODIUM CHLORIDE 0.9% FLUSH 5 ML FLUSH FLUSH SCH ×2 (09:00→21:31)
[2016-08-09] MEDS: GABAPENTIN 300 MG CAP PO SCH ×2 (09:01→21:31)
[2016-08-09] MEDS: DILTIAZEM-CD 240 MG CAP ER PO SCH (09:01)
[2016-08-09] MEDS: VANCOMYCIN INJ 1,250 MG in SODIUM CHLOR 0.9% 250 ML INJ 250 ML IV SCH ×2 (09:02→18:47)
[2016-08-09] MEDS: ENOXAPARIN SODIUM 40 MG/0.4 ML SYRINGE SQ SCH (11:27)
--- NOTE | 2016-08-09 11:58 | HHI.PR ---
Subjective History of Present Illness s/p amputation yesterday c/o pain , wants more pain meds No nausea or vomiting No fever or chills No CP or SOB Offers no other complaints Vitals/Results Intake & Output 08/08/16 08/08/16 08/09/16 15:00 23:00 07:00 Intake Total 850 ml 1489 ml Output Total 51 ml Balance 799 ml 1489 ml Intake Oral 650 ml 650 ml IV Total 839 ml Other 200 ml Stool Total 1 ml Estimated Blood Loss 50 ml # Voids 5 3 # Bowel Movements 1 0 Vital Signs Vital Signs Date Time Temp Pulse Resp B/P Pulse Ox O2 Delivery O2 Flow Rate FiO2 08/09/16 08:00 97.3 72 20 137/72 98 08/09/16 04:14 97.6 69 18 130/72 98 08/09/16 00:20 98.7 81 18 144/80 90 08/08/16 21:00 98.5 76 16 136/78 95 Nasal Cannula 3 08/08/16 20:45 75 16 146/83 99 Nasal Cannula 3 08/08/16 20:24 98.1 89 12 136/74 95 Nasal Cannula 3 08/08/16 20:10 99.3 83 18 156/97 100 08/08/16 14:00 96.7 70 18 151/91 100 08/08/16 12:00 96.4 70 18 155/79 96 CBC/BMP: 08/09/16 0628 08/08/16 0847 Lab Results Laboratory Tests Test 08/08/16 08/09/16 22:50 06:28 Vancomycin Level Trough 7.2 MCG/ML White Blood Count 11.2 TH/MM3 Red Blood Count 4.82 MIL/MM3 Hemoglobin 13.3 GM/DL Hematocrit 40.7 % Mean Corpuscular Volume 84.3 FL Mean Corpuscular Hemoglobin 27.6 PG Mean Corpuscular Hemoglobin 32.7 % Concent Red Cell Distribution Width 13.7 % Platelet Count 264 TH/MM3 Mean Platelet Volume 7.9 FL Physical Exam General General Appearance: No Acute Distress, Comfortable, Obese Eyes Eye Exam: Pupils Equal, Sclera White, Extraocular Movement Intact Ears & Nose Ears & Nose Exam: Nasal Mucosa [place] Throat Throat Exam: Oral Mucosa [place] & Moist Neck Neck Exam: Neck Supple, Trachea Midline Pulmonary Resp Exam: Clear Bilaterally, Breath Sounds Equal Cardiology CV Exam: Regular, Normal Sinus Rhythm Gastrointestinal/Abdomen GI Exam: Soft, Non-Tender, Bowel Sounds Present Musculoskeletal MS Exam: Atrophy MS Remarks Right for dressing intact Integumentary Skin Exam: Warm, Dry Extremeties Extremities Exam: No Edema, Pedal Pulses Palpable Neurologic Neuro Exam: Alert, Awake, Oriented, Speech Clear, Moving All Extremities PUD Prophylasis PUD Prophylaxis: Protonix Assessment/Plan Assessment/Plan IMPRESSION 1. Diabetic infection of the right great toe and cellulitis of the right lower extremity. 2. Charcot deformity of the right foot. 3. Diabetes mellitus 4. COPD 5. History of atrial fibrillation, currently in sinus rhythm. 6. Obesity 7. Chronic pain syndrome with narcotic dependence. 8. Hypoxia 9. Hyponatremia DISCUSSION MRI foot noted, positive for osteo right big toe Podiatry input appreciated, s/p R big toe amputation wound c.s not taken ?? Continue empiric IV antibiotic ID follow-up Continue analgesics Wound care diabetic diet oral hypoglycemic agent/ resume metformin Accu-Cheks UC and daily at bedtime Blood pressure control stop smoking PPI resume Xarelto DVT prophylaxis Discussed patient Will follow Arjun Pang MD Aug 09, 2016 11:58
[2016-08-09 12:00] VITALS: BP 132/71; PULSE 78; RESP 20; TEMP 98.4; O2SAT 98
[2016-08-09 16:00] VITALS: BP 138/77; PULSE 68; RESP 20; TEMP 98.6; O2SAT 97
--- NOTE | 2016-08-09 18:00 | PD.ID.CON ---
History of Present Illness Service Infectious disease Consult Requested By Dr. Hernadez/Dr. Kearney Reason for Consult Evaluation and management of infected diabetic foot ulcer Primary Care Physician Jarvis Ford DO Diagnoses: History of Present Illness Mr. Molina is a 50-year-old male with history of diabetes, CAD, hypertension, COPD with blister on R great toe x 1 month that has worsened. He came in stating he has had fever/chills, and with redness to foot getting worse. MRI pending. IV antibiotics started. He does not follow with a candy mixer outpatient , but has history of R 2nd toe amputation at MTP joint 3 years ago. Patient did not seek medical attention. Patient reports that he has several cats as well as raccoons at home. His personal hygiene is poor. Denies any night sweats. Infectious disease is consulted for evaluation and management of infected diabetic foot ulcer. Review of Systems ROS Limitations: Poor Historian Past Family Social History Allergies: Coded Allergies: No Known Allergies (Verified , 08/06/16) Past Medical History Hypertension. COPD CHF Neuropathy likely diabetes related Morbid obesity. Past Surgical History Second toe amputation. Reported Medications Reported Meds & Active Scripts Active Reported Cartia Xt (Diltiazem ER 24 HR) 240 Mg Caper 240 Mg PO DAILY Gabapentin 600 Mg Tab 600 Mg PO BID Glipizide 5 Mg Tab 5 Mg PO BIDAC Take 30 minutes before a meal Metformin (Metformin HCl) 1,000 Mg Tab 1,000 Mg PO BIDPC With meals Xarelto (Rivaroxaban) 20 Mg Tab 20 Mg PO DAILY Active Ordered Medications Current Medications Medications (Trade) Dose Ordered Sig/Nolberto Route Start Time Stop Time Status Last Admin (NS 1000 ml Inj) 1,000 ml @ 70 mls/hr [id number] IV 08/06/16 21:15 08/09/16 05:55 (D50w (Vial) Inj) 25 ml UNSCH PRN IV PUSH 08/06/16 23:00 Glucagon 1 mg 1 mg UNSCH PRN OTHER 08/06/16 23:00 (Vancomycin Consult Pharmacy) 0 ml @ 0 mls/hr UNSCH OTHER 08/06/16 23:00 (Roxicodone) 10 mg Q6H PRN PO 08/06/16 23:00 (Roxicodone) 20 mg Q6H PRN PO 08/06/16 23:00 08/09/16 17:56 (NS Flush) 2 ml UNSCH PRN FLUSH 08/06/16 23:15 (NS Flush) 2 ml BID FLUSH 08/07/16 09:00 08/08/16 20:49 (Tylenol) 650 mg Q4H PRN PO 08/06/16 23:15 (Zofran Inj) 4 mg Q6H PRN IVP 08/06/16 23:15 (Ambien) 5 mg HS PRN PO 08/06/16 23:15 (Narcan Inj) 0.4 mg UNSCH PRN IV 08/06/16 23:15 (Cardizem Cd) 240 mg DAILY PO 08/08/16 09:00 08/09/16 09:01 (Neurontin) 600 mg BID PO 08/07/16 21:00 08/09/16 09:01 (Lovenox Inj) 40 mg Q24H SQ 08/07/16 11:00 08/09/16 11:27 (Dilaudid Pf Inj) 1 mg Q4H PRN IV PUSH 08/07/16 09:45 08/09/16 15:13 (Glucotrol) 10 mg BIDAC PO 08/09/16 07:00 08/09/16 15:12 Miscellaneous Information ALL NURSING DEPARTME... UNSCH PRN XX 08/08/16 21:45 08/09/16 21:44 (Vancomycin Inj/ NS 250 ml Inj) 262.5 ml @ 250 mls/hr Q8H IV 08/09/16 09:00 08/09/16 18:47 Miscellaneous Information SPECIFIC LAB TO BE SEFERINO... ONCE ONCE XX 08/10/16 08:45 08/10/16 08:46 (Glucophage) 1,000 mg BIDPC PO 08/10/16 09:00 (Xarelto) 20 mg DAILY PO 08/10/16 09:00 UNV Family History Reviewed and noncontributory to current problems. Social History Lives at home in [facility] [place]. Reports he has several raccoons, cats as pets. He also reports he has birds as pets. Alcohol, smoking 2 packs per day. Physical Exam Vital Signs Vital Signs Date Time Temp Pulse Resp B/P Pulse Ox O2 Delivery O2 Flow Rate FiO2 08/09/16 16:00 98.6 68 20 138/77 97 08/09/16 12:00 98.4 78 20 132/71 98 08/09/16 08:00 97.3 72 20 137/72 98 08/09/16 04:14 97.6 69 18 130/72 98 08/09/16 00:20 98.7 81 18 144/80 90 08/08/16 21:00 98.5 76 16 136/78 95 Nasal Cannula 3 08/08/16 20:45 75 16 146/83 99 Nasal Cannula 3 08/08/16 20:24 98.1 89 12 136/74 95 Nasal Cannula 3 08/08/16 20:10 99.3 83 18 156/97 100 Physical Exam GENERAL: This is a well-nourished, well-developed patient, in no apparent distress. SKIN: No rashes, ecchymoses or lesions. Cool and dry. HEAD: Atraumatic. Normocephalic. No temporal or scalp tenderness. EYES: Pupils equal round and reactive. Extraocular motions intact. No scleral icterus. No injection or drainage. ENT: Nose without bleeding, purulent drainage or septal hematoma. Throat without erythema, tonsillar hypertrophy or exudate. Uvula midline. Airway patent. NECK: Trachea midline. Supple, nontender, no meningeal signs. CARDIOVASCULAR: Heart sounds audible. RESPIRATORY: Clear to auscultation. Breath sounds equal bilaterally. No wheezes , rales, or rhonchi. GASTROINTESTINAL: Abdomen soft, non-tender, nondistended. Obese. MUSCULOSKELETAL: Extremities without clubbing, cyanosis, or edema. No joint tenderness, effusion, or edema noted. No calf tenderness. Negative Homans sign bilaterally. Psych cooperative IV line sites with no evidence of infection. NEUROLOGICAL: Awake and alert. Cranial nerves II through XII intact. Motor and sensory grossly within normal limits. Five out of 5 muscle strength in all muscle groups. Normal speech. Laboratory Laboratory Tests Test 08/08/16 08/09/16 22:50 06:28 Vancomycin Level Trough 7.2 White Blood Count 11.2 Red Blood Count 4.82 Hemoglobin 13.3 Hematocrit 40.7 Mean Corpuscular Volume 84.3 Mean Corpuscular Hemoglobin 27.6 Mean Corpuscular Hemoglobin 32.7 Concent Red Cell Distribution Width 13.7 Platelet Count 264 Mean Platelet Volume 7.9 Date/Time Procedure Status Source Growth 08/06/16 19:53 Aerobic Blood Culture - Preliminary Resulted Blood Peripheral NO GROWTH IN 3 DAYS 08/06/16 19:53 Anaerobic Blood Culture - Preliminary Resulted Blood Peripheral NO GROWTH IN 3 DAYS Result Diagram: 08/09/16 0628 08/08/16 0847 Imaging Last Impressions Foot X-Ray 08/08/16 0000 Signed Impressions: Service Date/Time: Monday, August 08, 2016 20:35 - CONCLUSION: Interval post surgical changes status post amputation of the first digit. Wilmer Grande MD Foot MRI 08/07/16 0000 Signed Impressions: Service Date/Time: Sunday, August 07, 2016 09:48 - CONCLUSION: 1. Severe ulceration of the great toe soft tissues. There is osteomyelitis essentially throughout the distal phalanx. 2. Suspected small subcutaneous abscess pockets plantar to lateral Lisfranc joint and seen in the setting of a very severe destructive arthropathy of the third, fourth and fifth tarsometatarsal joints. Features are concerning for septic arthropathy superimposed on neuropathic changes. Moshe Londono MD Chest X-Ray 08/06/16 191 Signed Impressions: Service Date/Time: Saturday, August 06, 2016 19:10 - CONCLUSION: 1. No acute airspace disease or significant effusion. Richard Marrufo MD Lower Extremity Ultrasound 08/06/16 0000 Signed Impressions: Service Date/Time: Saturday, August 06, 2016 19:30 - CONCLUSION: 1. Negative for deep venous thrombosis. Enlarged lymph nodes in the right inguinal region. Soft tissue edema. Richard Marrufo MD Assessment and Plan Assessment and Plan Infected diabetic foot ulcer status post surgery and removal of all infected parts. Pathology pending. Per discussion with Dr. Kearney amputation was way beyond the infection and there is no residual infection. She would like to have this treated with just 2 weeks of oral antibiotics. Hypertension Morbid obesity Neuropathy likely diabetes related Recommendations Discontinue vancomycin IV Discussed case with Dr. Kearney okay to discharge on oral antibiotics for 2 weeks Start doxycycline 100 mg by mouth twice a day for total of 2 weeks Follow pathology results Okay to discharge from ID standpoint once podiatry clears the patient. If pathology results positive please call candy mixer as well as infectious disease as plan could change. Rayne Vega MD Aug 09, 2016 18:00
[2016-08-09 20:33] VITALS: BP 135/86; PULSE 73; RESP 20; TEMP 99.2; O2SAT 94
--- NOTE | 2016-08-09 21:35 | PD.POD ---
Subjective Podiatric Problems R great toe osteomyelitis Past Med/Surg/Social History Social History Smoking Status: Current Every Day Smoker Objective Vital Signs Vital Signs Date Time Temp Pulse Resp B/P Pulse Ox O2 Delivery O2 Flow Rate FiO2 08/09/16 20:33 99.2 73 20 135/86 94 08/09/16 16:00 98.6 68 20 138/77 97 08/09/16 12:00 98.4 78 20 132/71 98 08/09/16 08:00 97.3 72 20 137/72 98 08/09/16 04:14 97.6 69 18 130/72 98 08/09/16 00:20 98.7 81 18 144/80 90 Coded Allergies: No Known Allergies (Verified , 08/06/16) Physical Exam Remarks R foot bandage clean, dry, intact Assessment & Plan A/P Osteomyelitis R hallux, s/p amputation R hallux 08/08/16 Ok with oral antibiotics upon d/c x 2 weeks Ok with d/c tomorrow Follow up in clinic 1 week for dressing change Continue minimal weightbearing in surgical shoe R foot. Mariano Kearney DPM Aug 09, 2016 21:35
[2016-08-09] MEDS: DOXYCYCLINE HYCLATE 100 MG CAP PO SCH (21:39)
[2016-08-10 00:04] VITALS: BP 143/76; PULSE 80; RESP 18; TEMP 98.1; O2SAT 98
[2016-08-10 04:11] VITALS: BP 131/74; PULSE 63; RESP 22; TEMP 98.1; O2SAT 95
[2016-08-10] MEDS: INSULIN ASPART SUPPLEMENTAL SCALE SQ SCH ×2 (06:41→11:21)
[2016-08-10] MEDS: glipiZIDE 5 MG TAB PO SCH (06:41)
[2016-08-10] MEDS: HYDROmorphone HCL PF 1 MG/ML VIAL IV PUSH PRN ×2 (06:42→11:22)
[2016-08-10 08:00] VITALS: BP 136/87; PULSE 70; RESP 20; TEMP 96.9; O2SAT 98
[2016-08-10] MEDS ORDERED: PHARMACY ORDERED LAB XX ONE (08:45)
[2016-08-10] MEDS ORDERED: metFORMIN HCL 500 MG TAB PO SCH (09:00)
[2016-08-10] MEDS ORDERED: RIVAROXABAN 20 MG TAB PO SCH (09:00)
[2016-08-10] MEDS: SODIUM CHLORIDE 0.9% FLUSH 5 ML FLUSH FLUSH SCH (09:00)
[2016-08-10] MEDS: DOXYCYCLINE HYCLATE 100 MG CAP PO SCH (09:34)
[2016-08-10] MEDS: DILTIAZEM-CD 240 MG CAP ER PO SCH (09:35)
[2016-08-10] MEDS: GABAPENTIN 300 MG CAP PO SCH (09:35)
--- NOTE | 2016-08-10 11:37 | HHI.PR ---
Subjective History of Present Illness I am ok /eager to go home pain is better / pain meds are helping No nausea or vomiting good appetite No fever or chills No CP or SOB Offers no other complaints Vitals/Results Intake & Output 08/09/16 08/09/16 08/10/16 15:00 23:00 07:00 Intake Total 960 ml 480 ml Output Total 650 ml Balance 960 ml 480 ml -650 ml Intake Oral 960 ml 480 ml Output Urine Total 650 ml # Voids 4 # Bowel Movements 1 1 Vital Signs Vital Signs Date Time Temp Pulse Resp B/P Pulse Ox O2 Delivery O2 Flow Rate FiO2 08/10/16 08:00 96.9 70 20 136/87 98 08/10/16 04:11 98.1 63 22 131/74 95 08/10/16 00:04 98.1 80 18 143/76 98 08/09/16 20:33 99.2 73 20 135/86 94 08/09/16 16:00 98.6 68 20 138/77 97 08/09/16 12:00 98.4 78 20 132/71 98 CBC/BMP: 08/09/16 0628 08/10/16 0710 Lab Results Laboratory Tests Test 08/10/16 07:10 Creatinine 0.55 MG/DL Estimat Glomerular Filtration 158 ML/MIN Rate Physical Exam General General Appearance: No Acute Distress, Comfortable, Obese Eyes Eye Exam: Pupils Equal, Sclera White, Extraocular Movement Intact Ears & Nose Ears & Nose Exam: Nasal Mucosa [place] Throat Throat Exam: Oral Mucosa [place] & Moist Neck Neck Exam: Neck Supple, Trachea Midline Pulmonary Resp Exam: Clear Bilaterally, Breath Sounds Equal Cardiology CV Exam: Regular, Normal Sinus Rhythm Gastrointestinal/Abdomen GI Exam: Soft, Non-Tender, Bowel Sounds Present Musculoskeletal MS Exam: Atrophy MS Remarks Right for dressing intact Integumentary Skin Exam: Warm, Dry Extremeties Extremities Exam: No Edema, Pedal Pulses Palpable Neurologic Neuro Exam: Alert, Awake, Oriented, Speech Clear, Moving All Extremities PUD Prophylasis PUD Prophylaxis: Protonix Assessment/Plan Assessment/Plan IMPRESSION 1. Diabetic infection of the right great toe and cellulitis of the right lower extremity. 2. Charcot deformity of the right foot. 3. Diabetes mellitus 4. COPD 5. History of atrial fibrillation, currently in sinus rhythm. 6. Obesity 7. Chronic pain syndrome with narcotic dependence. 8. Hypoxia 9. Hyponatremia DISCUSSION MRI foot noted, positive for osteo right big toe Podiatry input appreciated, s/p R big toe amputation/ no residual bone infection wound c.s not taken ?? PO antibiotic rec by ID x 2 wks for associated cellulitis Continue analgesics Wound care per podiatry diabetic diet oral hypoglycemic agent/ resume metformin Accu-Cheks UC and daily at bedtime Blood pressure control stop smoking PPI Xarelto cleared by Podiatry/ ID for d/c d/c home f/u pcp f/u podiatry next wk see Orders see MRS Discussed patient Arjun Pang MD Aug 10, 2016 11:36
[2016-08-10 12:00] VITALS: BP 140/86; PULSE 72; RESP 20; TEMP 97.3; O2SAT 95
[2016-08-10] MEDS ORDERED: OXYC-395 PO (12:06)
[2016-08-10] MEDS ORDERED: DOXY100C PO (12:06)
--- NOTE | 2016-08-10 18:43 | HHI.DS ---
Discharge Summary Admission Date Aug 06, 2016 at 21:45 Discharge Date: Aug 10, 2016 Admitting Diagnosis R foot cellulitis. R leg cellulitis. R/O osteomyelitis Brief History HISTORY OF PRESENT ILLNESS This was a pleasant 50-year-old male who had a blister on his right toe which started about a month ago. This progressively worsened and he had been doctoring it at home. However, over the last several days, the toe had become more macerated, it had been bleeding. He had worsening pain, swelling and erythema around the toe and all the way up to the right mid calf. Day of admission he felt nauseated. He felt chilled, so he had decided to seek medical attention. He had not sought any medical attention for this until this point. He stated he has been busy with work and thought he could manage it on his own. He was seen in the emergency room and is being admitted for further care. He states he is on Oxycodone 20 mg four times a day for his back. Some times he takes an extra dose because of the pain in his leg. He also took Neurontin for the neuropathy. He had a previous toe infection several years ago and required an amputation of the second digit on the right foot already. CBC/BMP: 08/09/16 0628 08/10/16 0710 Significant Findings Laboratory Tests Test 08/08/16 08/09/16 08/10/16 08:47 06:28 07:10 White Blood Count 13.8 TH/MM3 11.2 TH/MM3 (4.0-11.0) (4.0-11.0) Sodium Level 135 MEQ/L (136-145) Chloride Level 97 MEQ/L (98-107) Random Glucose 285 MG/DL (74-106) Calcium Level 8.3 MG/DL (8.5-10.1) Creatinine 0.55 MG/DL (0.60-1.30) Imaging Last Impressions Foot X-Ray 08/08/16 0000 Signed Impressions: Service Date/Time: Monday, August 08, 2016 20:35 - CONCLUSION: Interval post surgical changes status post amputation of the first digit. Wilmer Grande MD Foot MRI 08/07/16 0000 Signed Impressions: Service Date/Time: Sunday, August 07, 2016 09:48 - CONCLUSION: 1. Severe ulceration of the great toe soft tissues. There is osteomyelitis essentially throughout the distal phalanx. 2. Suspected small subcutaneous abscess pockets plantar to lateral Lisfranc joint and seen in the setting of a very severe destructive arthropathy of the third, fourth and fifth tarsometatarsal joints. Features are concerning for septic arthropathy superimposed on neuropathic changes. Moshe Londono MD Chest X-Ray 08/06/16 1911 Signed Impressions: Service Date/Time: Saturday, August 06, 2016 19:10 - CONCLUSION: 1. No acute airspace disease or significant effusion. Richard Marrufo MD Lower Extremity Ultrasound 08/06/16 0000 Signed Impressions: Service Date/Time: Saturday, August 06, 2016 19:30 - CONCLUSION: 1. Negative for deep venous thrombosis. Enlarged lymph nodes in the right inguinal region. Soft tissue edema. Richard Marrufo MD PE at Discharge Physical Exam Physical Exam General General Appearance: No Acute Distress, Comfortable, Obese Eyes Eye Exam: Pupils Equal, Sclera White, Extraocular Movement Intact Ears & Nose Ears & Nose Exam: Nasal Mucosa [place] Throat Throat Exam: Oral Mucosa [place] & Moist Neck Neck Exam: Neck Supple, Trachea Midline Pulmonary Resp Exam: Clear Bilaterally, Breath Sounds Equal Cardiology CV Exam: Regular, Normal Sinus Rhythm Gastrointestinal/Abdomen GI Exam: Soft, Non-Tender, Bowel Sounds Present Musculoskeletal MS Exam: Atrophy MS Remarks Right for dressing intact Integumentary Skin Exam: Warm, Dry Extremeties Extremities Exam: No Edema, Pedal Pulses Palpable Neurologic Neuro Exam: Alert, Awake, Oriented, Speech Clear, Moving All Extremities PUD Prophylasis PUD Prophylaxis: Protonix Hospital Course Patient was treated for the following diagnosis. 1. Diabetic infection of the right great toe and cellulitis of the right lower extremity. 2. Charcot deformity of the right foot. 3. Diabetes mellitus 4. COPD 5. History of atrial fibrillation, currently in sinus rhythm. 6. Obesity 7. Chronic pain syndrome with narcotic dependence. 8. Hypoxia 9. Hyponatremia Admission patient had MRI foot noted, positive for osteo right big toe. Podiatry was consulted and an P amputated the right big toe. This left no residual bone infection. patient was placed on PO antibiotic rec by ID x 2 wks for associated cellulitis . Pain meds were continued as well as as wound care per podiatry. When patient was stable discharge was cleared per podiatry. She was given diabetic diet hospital stay all rated well.Accu-Cheks UC and daily at bedtime were managed during his hospital stay. Hospitalists rounded daily and monitored patient's medical comorbidities of the healing process would occur. Labs monitored included WBC count which continued to decline to a normal range with antibiotics. Urinalysis was obtained and was within normal limits. No culture was needed. Patient also had coagulation studies done which were normal. Patient received pain management, the DVT prophylaxis PUD prophylaxis. Patient was encouraged to stop smoking. Vital signs were monitored during hospital stay without incident, home meds were reconciled, lab values were monitored and treated according to patient needs. Pt Condition on Discharge: Stable Discharge Disposition: Discharge Home Discharge Instructions DIET: Follow Instructions for: Heart Healthy Diet, Diabetic Diet Fluid Restrictions: none Activities you can perform: Partial Weight Bearing Other Activity Instructions: no smoking Follow up Referrals: PCP Follow-up - 1 Week Podiatry - 1 Week New Medications: Doxycycline Hyclate (Doxycycline Hyclate) 100 Mg Cap 100 MG PO BID Infection #28 CAP Oxycodone (Oxycodone) 10 Mg Tab 20 MG PO Q6H PRN severe pain #30 TAB Continued Medications: Diltiazem ER 24 HR (Cartia Xt) 240 Mg Caper 240 MG PO DAILY #30 Ref 0 CAP Gabapentin (Gabapentin) 600 Mg Tab 600 MG PO BID #60 Ref 0 TAB Glipizide (Glipizide) 5 Mg Tab 5 MG PO BIDAC Take 30 minutes before a meal Blood Sugar Management #60 Ref 0 TAB Metformin (Metformin) 1,000 Mg Tab 1000 MG PO BIDPC With meals Blood Sugar Management #60 Ref 0 TAB Rivaroxaban (Xarelto) 20 Mg Tab 20 MG PO DAILY Blood Clot Prevention Ref 0 TAB Helen Arambula Aug 10, 2016 18:42
--- NOTE | 2016-08-14 20:10 | MP ---
cc: FRED RICHARDS DANNI DATE OF SURGERY 08/08/2016 DATE OF 1965 INDICATIONS This patient presented to the emergency department complaining of worsening redness, swelling with drainage coming from the distal aspect of the right great toe. He has a history of the right second toe amputation due to infection, as well as with Dr. Roche approximately three years prior. He came in complaining of this increased drainage and infection to be evaluated. X-rays were performed, as well as MRI that showed changes in the bone consistent with osteomyelitis. The patient was scheduled for amputation of the right great toe. I discussed with him the risks, benefits and procedural complications involved with surgery and he understood and all of his questions were answered to his satisfaction. I also discussed with him that although just the distal aspect of the bone was infected, the plantar aspect of the great toe tissue appeared to be nonviable and I did not feel that I could amputate just the distal aspect of the great toe with success, therefore he consented to amputation of the right great toe. PROCEDURE He was seen in preop holding by myself, nursing staff and Anesthesia where the correct patient, side, and site were all confirmed to be correct in the right foot. He was taken back to the surgical suite in the supine position. Attention was directed to the right foot. He was prepped and draped in normal sterile fashion following time-outs as per hospital protocol. Attention was then directed to the right great toe with two semi-elliptical incisions were made at the level of the metatarsal phalangeal joint. At the distal aspect of the hallux, there was noted to be a plantar ulceration with palpable bone and significant purulent drainage with nonviable non bleeding tissue to the plantar aspect of the hallux. Upon removal of the great toe at the level metatarsophalangeal joint, there was noted to be viable tissue at this level. It was copiously irrigated with normal saline and after examination of healthy white cartilage capped at the first metatarsal head as well as healthy viable appearing tissues to the remaining tissue with no necrotic tissue or purulence at that area. The area was deemed acceptable to be closed by primary closure with 2-0 nylon suture. Following this a dressing consisting of Adaptic, 4x4, ABD, Adelaida and William wrap was applied to the right foot. He was transferred to PACU with vital signs stable and vascular status intact to the remainder of the right foot. He tolerated procedure and anesthesia well without complications and will be weightbearing as tolerated to the right foot in a surgical shoe. I recommend he continue his antibiotics while in house and will continue on approximately two weeks of oral antibiotics upon discharge per his culture that was taken upon his admission and follow up with me next week in clinic to have a bandage change. SHORT OPERATIVE NOTE SURGEON Fred Richards MD RN CCU Staff PREOPERATIVE DIAGNOSIS Osteomyelitis right great toe. POSTOPERATIVE DIAGNOSIS Osteomyelitis right great toe. PROCEDURE Amputation right great toe PATHOLOGY Right great toe to pathology for gross and microscopic exam PROPHYLAXIS None ANESTHESIA General endotracheal anesthesia plus 10 mL of 2% lidocaine plain HEMOSTASIS None ESTIMATED BLOOD LOSS Minimal COMPLICATIONS None CONDITION Stable to PACU. DISPOSITION Weightbearing as tolerated right foot in surgical shoe. Fred LANDIS/EFFIEL /8:28 PM /8:02 PM
== END 2016-08-10 13:41 | disposition home or self-care (01) | DRG 617 ==
LOC: NEPA 16:50 → NEDA 21:45 → NEDH 08-07 02:45 → N05A 08-07 17:38
PROVIDERS: ADMIT Specialist; ATTEND Specialist
PROC: 3E0F7GC Introduction of Other Therapeutic Substance into Respiratory Tract, Via Natural or Artificial Opening (ICD-10-PCS; principal; 2016-08-06)
PROC: 0Y6P0Z0 Detachment at Right 1st Toe, Complete, Open Approach (ICD-10-PCS; 2016-08-08)
DX: E11.69 Type 2 diabetes mellitus with other specified complication (principal); E11.52 Type 2 diabetes mellitus with diabetic peripheral angiopathy with gangrene; E11.40 Type 2 diabetes mellitus with diabetic neuropathy, unspecified; F11.20 Opioid dependence, uncomplicated; L03.115 Cellulitis of right lower limb; E87.1 Hypo-osmolality and hyponatremia; M86.9 Osteomyelitis, unspecified; E11.621 Type 2 diabetes mellitus with foot ulcer; L03.031 Cellulitis of right toe; I50.9 Heart failure, unspecified; L97.514 Non-pressure chronic ulcer of other part of right foot with necrosis of bone; I48.91 Unspecified atrial fibrillation; I10 Essential (primary) hypertension; F17.210 Nicotine dependence, cigarettes, uncomplicated; M54.9 Dorsalgia, unspecified; G89.4 Chronic pain syndrome; J44.9 Chronic obstructive pulmonary disease, unspecified; R09.02 Hypoxemia; I25.10 Atherosclerotic heart disease of native coronary artery without angina pectoris; Z89.421 Acquired absence of other right toe(s); Z79.84 Long term (current) use of oral hypoglycemic drugs; E66.01 Morbid (severe) obesity due to excess calories
CPT/HCPCS: 71010; 73630; 73720; 76937; 80048; 80053; 80202; 81001; 82550; 82565; 82948; 83605; 83735; 84484; 85007; 85025; 85027; 85610; 85730; 87040; 88305; 88311; 93005; 93971; 96374; A9579; J1170; J1650; J1815; J3010; J3370; J7030; J7040; J7050; L3260

== ENCOUNTER 2016-08-31 08:47 | Emergency (ER) | payer BC ==
[~2016-08-31] VITALS: Ht 180.3 cm; Wt 123.0 kg
[~2016-08-31 08:47] MED LIST changes: +CART240C PO; -CART240C4 PO; +DOXY100C PO; +GABA600T PO; -GLIP10TA6 PO; +GLIP5TAB8 PO; -GLUC1000 PO; +METF1000 PO; -NEUR600T PO; +OXYC-395 PO; -RIVA20 PO; +XARE20TA PO
[2016-08-31 08:55] VITALS: BP 174/95; PULSE 93; RESP 18; TEMP 98.6; O2SAT 98
[2016-08-31] MEDS ORDERED: AMOX875T PO (08:59)
--- NOTE | 2016-08-31 09:38 | PD ---
HPI Chief Complaint: Cold / Flu Symptoms Time Seen by Provider: 09:30 Travel History International Travel<30 days: No Contact w/Intl Traveler<30days: No Traveled to known affect area: No History of Present Illness HPI Patient complains of runny nose and cough and congestion. Denies fever. Symptoms severity is mild to moderate PFSH Past Medical History Autoimmune Disease: No Heart Rhythm Problems: Yes (afib) Cancer: No Cardiovascular Problems: Yes (htn) High Cholesterol: No Chemotherapy: No Chest Pain: No Congestive Heart Failure: Yes Diabetes: Yes Patient Takes Glucophage: Yes Diminished Hearing: No Endocrine: Yes Gastrointestinal Disorders: No Genitourinary: No Hypertension: Yes Immune Disorder: No Implanted Vascular Access Dvce: No Musculoskeletal: Yes (BACK INJURY- TAKES PAIN MEDS FOR) Neurologic: Yes (neuropathy) Psychiatric: No Reproductive: No Respiratory: Yes Radiation Therapy: No Thyroid Disease: No Past Surgical History Other Surgery: Yes (2ND RIGHT TOE AMPUTATED r/t injury) Social History Alcohol Use: No Tobacco Use: Yes (2 ppd cigs) Substance Use: No Allergies-Medications (Allergen,Severity, Reaction): Coded Allergies: No Known Allergies (Verified , 08/31/16) Reported Meds & Prescriptions Reported Meds & Active Scripts Active Oxycodone (Oxycodone HCl) 10 Mg Tab 20 Mg PO Q6H PRN Doxycycline Hyclate 100 Mg Cap 100 Mg PO BID Reported Amoxicillin 875 Mg Tab 875 Mg PO BID Cartia Xt (Diltiazem ER 24 HR) 240 Mg Caper 240 Mg PO DAILY Gabapentin 600 Mg Tab 600 Mg PO BID Glipizide 5 Mg Tab 5 Mg PO BIDAC Take 30 minutes before a meal Metformin (Metformin HCl) 1,000 Mg Tab 1,000 Mg PO BIDPC With meals Xarelto (Rivaroxaban) 20 Mg Tab 20 Mg PO DAILY Review of Systems General / Constitutional: No: Fever HENT: No: Headaches Cardiovascular: No: Chest Pain or Discomfort Physical Exam Narrative RESPIRATORY: Respiratory effort unlabored, no retractions or use of accessory muscles. Breath sounds are clear and symmetric. CARDIOVASCULAR: Regular rate and rhythm without murmur. Extremities showed no edema or varicosities. NECK: Symmetrical appearance, midline trachea. No mass or crepitus. Thyroid without enlargement, tenderness, or mass. Throat clear Data Data Last Documented VS Vital Signs Date Time Temp Pulse Resp B/P Pulse Ox O2 Delivery O2 Flow Rate FiO2 08/31/16 08:55 98.6 93 18 174/95 98 MDM Medical Decision Making Medical Screen Exam Complete: Yes Emergency Medical Condition: Yes Medical Record Reviewed: Yes Differential Diagnosis Flu syndrome, bronchitis, pneumonia Narrative Course I have reviewed the patient's electronic medical record. Presentation most consistent with viral syndrome No indication for antibiotics Supportive care discussed Diagnosis Primary Impression: Acute viral syndrome Additional Instructions: The patient was advised to follow up with their physician and return if they worsen. Med/Other Pt SpecificInfo: Other Disposition: 01 DISCHARGE HOME Condition: Stable Hossein Rodriguez MD Aug 31, 2016 09:38
== END 2016-08-31 09:55 | disposition home or self-care (01) ==
LOC: PHEFT 08:47
DX: B34.9 Viral infection, unspecified (principal); F17.210 Nicotine dependence, cigarettes, uncomplicated
CPT/HCPCS: 99283

== ENCOUNTER 2017-12-26 19:54 | Emergency (ER) | payer BC, OTHER ==
[~2017-12-26] VITALS: Ht 180.3 cm; Wt 123.0 kg
[~2017-12-26 19:54] MED LIST changes: +AMOX875T PO
[2017-12-26 22:50] VITALS: BP 142/77; PULSE 68; RESP 20; TEMP 98; O2SAT 98
--- NOTE | 2017-12-27 00:22 | PD ---
HPI Chief Complaint: Injury Time Seen by Provider: 00:10 Travel History International Travel<30 days: No Contact w/Intl Traveler<30days: No Traveled to known affect area: No History of Present Illness HPI The patient is a 52-year-old male who presents to the emergency department via private vehicle for an open sore on the bottom of the right foot. The patient does have a history of diabetes as well as a history of osteomyelitis with previous toe amputation of the right foot. The patient states he initially had one toe removed by Dr. Lockwood, had a second toe removed 2 years ago by a female staffing operations manager, however, cannot recall the name of the staffing operations manager. The patient states he has had a blister on the bottom of the right foot for several weeks, however, it opened up several days ago and has been draining clear fluid. He denies any fever, but does complain of pain over the affected area. The patient states his primary physician, Dr. Dewitt, sent him to the emergency department for further evaluation. The patient also complains of mild shortness of breath with wheezing, does have a history of tobacco use and COPD. The patient last used a cigarette just prior to arrival. Symptoms are moderate. He denies any Any chest pain, nausea, vomiting, or abdominal pain. PFSH Past Medical History Autoimmune Disease: No Heart Rhythm Problems: Yes (afib) Cancer: No Cardiovascular Problems: Yes (htn) High Cholesterol: No Chemotherapy: No Chest Pain: No Congestive Heart Failure: Yes Diabetes: Yes Diminished Hearing: No Endocrine: Yes Gastrointestinal Disorders: No Genitourinary: No Hypertension: Yes Immune Disorder: No Implanted Vascular Access Dvce: No Musculoskeletal: Yes (BACK INJURY- TAKES PAIN MEDS FOR) Neurologic: Yes (neuropathy) Psychiatric: No Reproductive: No Respiratory: Yes Radiation Therapy: No Thyroid Disease: No Past Surgical History Other Surgery: Yes (2ND RIGHT TOE AMPUTATED r/t injury) Social History Alcohol Use: No Tobacco Use: Yes (2 ppd cigs) Substance Use: No Allergies-Medications (Allergen,Severity, Reaction): Coded Allergies: No Known Allergies (Verified Adverse Reaction, Unknown, 12/27/17) Reported Meds & Prescriptions Reported Meds & Active Scripts Active Cipro (Ciprofloxacin HCl) 500 Mg Tab 500 Mg PO BID 10 Days Cleocin (Clindamycin HCl) 300 Mg Cap 300 Mg PO Q6H 10 Days Oxycodone (Oxycodone HCl) 10 Mg Tab 20 Mg PO Q6H PRN Doxycycline Hyclate 100 Mg Cap 100 Mg PO BID Reported Amoxicillin 875 Mg Tab 875 Mg PO BID Cartia Xt (Diltiazem ER 24 HR) 240 Mg Caper 240 Mg PO DAILY Gabapentin 600 Mg Tab 600 Mg PO BID Glipizide 5 Mg Tab 5 Mg PO BIDAC Take 30 minutes before a meal Metformin (Metformin HCl) 1,000 Mg Tab 1,000 Mg PO BIDPC With meals Xarelto (Rivaroxaban) 20 Mg Tab 20 Mg PO DAILY Review of Systems Except as stated in HPI: all other systems reviewed are Neg General / Constitutional: No: Fever, Chills Cardiovascular: No: Chest Pain or Discomfort Respiratory: Positive: Shortness of Breath, Wheezing, No: Cough Gastrointestinal: No: Nausea, Vomiting, Diarrhea, Abdominal Pain Musculoskeletal: Positive: Edema, Pain Skin: Positive Other (As noted in the history of present illness) Neurologic: No: Change in Mentation Physical Exam Narrative GENERAL: Awake, alert, pleasant 52-year-old male who appears his stated age and is in no acute respiratory distress. SKIN: Focused skin assessment warm/dry. HEAD: Atraumatic. Normocephalic. EYES: Pupils equal and round. No scleral icterus. No injection or drainage. ENT: No nasal bleeding or discharge. Mucous membranes pink and moist. NECK: Trachea midline. No JVD. CARDIOVASCULAR: Regular rate and rhythm. No murmur appreciated. RESPIRATORY: No accessory muscle use. Diminished breath sounds throughout with prolonged expiratory phase. A few scattered wheezes. GASTROINTESTINAL: Abdomen soft, obese, no rebound tenderness. MUSCULOSKELETAL: Bilateral lower extremity edema right greater than the left with chronic venous stasis changes. Partial amputation of the distal right foot involving the right great toe. The patient has a large superficial ulceration on the plantar surface of the right foot over the medial aspect. There is some blistering of the skin with an open area with slightly foul smell but no obvious drainage. Tenderness over the affected area noted. Positive dorsalis pedal pulses. NEUROLOGICAL: Awake and alert. No obvious cranial nerve deficits. Motor grossly within normal limits. Normal speech. Nonfocal. PSYCHIATRIC: Appropriate mood and affect; insight and judgment normal. Data Data Last Documented VS Vital Signs Date Time Temp Pulse Resp B/P (MAP) Pulse Ox O2 Delivery O2 Flow Rate FiO2 12/27/17 04:00 12/27/17 02:03 90 20 94 Room Air 12/26/17 22:50 98.0 Orders Orders Complete Blood Count With Diff (12/27/17 00:16) Comprehensive Metabolic Panel (12/27/17 00:16) C-Reactive Protein (Crp) (12/27/17 00:16) Westergren Sedimentation Rate (12/27/17 00:16) Blood Culture (12/27/17 00:16) Lactic Acid (12/27/17 00:16) Foot, Complete ([id number]) (12/27/17 ) Albuterol-Ipratropium Neb (Duoneb Neb) (12/27/17 00:30) Ciprofloxacin 400 Mg Premix (Cipro 400 M (12/27/17 00:30) Clindamycin 600 Mg/Ns Premix (Cleocin 60 (12/27/17 00:30) Ed Discharge Order (12/27/17 02:43) Labs Laboratory Tests Test 12/27/17 01:02 12/27/17 01:07 White Blood Count 12.1 TH/MM3 Red Blood Count 5.27 MIL/MM3 Hemoglobin 14.5 GM/DL Hematocrit 44.4 % Mean Corpuscular Volume 84.1 FL Mean Corpuscular Hemoglobin 27.4 PG Mean Corpuscular Hemoglobin Concent 32.6 % Red Cell Distribution Width 14.3 % Platelet Count 335 TH/MM3 Mean Platelet Volume 7.2 FL Neutrophils (%) (Auto) 71.8 % Lymphocytes (%) (Auto) 15.5 % Monocytes (%) (Auto) 10.2 % Eosinophils (%) (Auto) 1.7 % Basophils (%) (Auto) 0.8 % Neutrophils # (Auto) 8.7 TH/MM3 Lymphocytes # (Auto) 1.9 TH/MM3 Monocytes # (Auto) 1.2 TH/MM3 Eosinophils # (Auto) 0.2 TH/MM3 Basophils # (Auto) 0.1 TH/MM3 CBC Comment DIFF FINAL Differential Comment Erythrocyte Sedimentation Rate 14 mm/hr Blood Urea Nitrogen 13 MG/DL Creatinine 0.75 MG/DL Random Glucose 187 MG/DL Total Protein 7.4 GM/DL Albumin 3.1 GM/DL Calcium Level 8.6 MG/DL Alkaline Phosphatase 97 U/L Aspartate Amino Transf (AST/SGOT) 11 U/L Alanine Aminotransferase (ALT/SGPT) 23 U/L Total Bilirubin 0.3 MG/DL Sodium Level 137 MEQ/L Potassium Level 4.1 MEQ/L Chloride Level 99 MEQ/L Carbon Dioxide Level 29.4 MEQ/L Anion Gap 9 MEQ/L Estimat Glomerular Filtration Rate 110 ML/MIN C-Reactive Protein 7.64 MG/DL Lactic Acid Level 1.2 mmol/L MDM Medical Decision Making Medical Screen Exam Complete: Yes Emergency Medical Condition: Yes Medical Record Reviewed: Yes Differential Diagnosis Differential diagnosis includes osteomyelitis, infected diabetic foot, foot ulcer, cellulitis, infected leg, abscess. Narrative Course IV was established, labs are drawn and sent, and the patient was placed on cardiac telemetry monitoring and continuous pulse oximetry monitoring. X-ray of the right foot was obtained to evaluate for possible osteomyelitis. Blood culture and lactic acid were sent to lab. The patient was administered Cipro and clindamycin. The patient was signed out to Alexander Delong PA-C, 1 AM. Diagnosis Primary Impression: Diabetic infection of right foot Patient Instructions: General Instructions Med/Other Pt SpecificInfo: Prescription(s) given Scripts Ciprofloxacin (Cipro) 500 Mg Tab 500 MG PO BID for Infection for 10 Days, #20 TAB 0 Refills Prov: Jaime Martin MD 12/27/17 Clindamycin (Cleocin) 300 Mg Cap 300 MG PO Q6H for Infection for 10 Days, #40 CAP 0 Refills Prov: Jaime Martin MD 12/27/17 Disposition: 01 DISCHARGE HOME Condition: Stable Jaime Martin MD Dec 27, 2017 00:22
[2017-12-27] MEDS ORDERED: CIPROFLOXACIN 400 MG PREMIX 200 ML IV ONE (00:30)
[2017-12-27] MEDS ORDERED: CLINDAMYCIN 600 MG/NS PREMIX 50 ML IV ONE (00:30)
[2017-12-27] MEDS ORDERED: RESP: ALBUTEROL 2.5 MG/IPRATROPIUM 0.5 MG NEB (SCH) NEB ONE (00:30)
--- NOTE | 2017-12-27 00:57 | RADRPT ---
EXAM DATE: 12/27/2017 12:39 AM EDT AGE/SEX: 52 years / Male INDICATIONS: Foot pain, inflammation, rule out osteomyelitis. CLINICAL DATA: This is the patient's initial encounter. Patient reports that signs and symptoms have been present for 1 week and indicates a pain score of 4/10. MEDICAL/SURGICAL HISTORY: Diabetes mellitus type II. Chronic obstructive pulmonary disease. H ypertension. . Right foot, 1st & 2nd digit amputation. COMPARISON: No prior exams available for comparison. FINDINGS: The patient is status post amputation of the first and second toes. There appears to be chronic perio steal thickening at the third through fifth metatarsals. There are some hypertrophic change seen jose elias cent to the proximal lateral aspect of the fifth metatarsal. There is soft tissue swelling throughout the foot. There is a calcaneal spur at the plantar aponeurosis attachment site. CONCLUSION: Soft tissue swelling seen throughout the foot. There is chronic appearing periosteal reaction at the third through fifth metatarsals. The patient is status post amputation of the first and second toes. One could further evaluate for osteomyelitis with a MRI examination. Electronically signed by: Moshe Flannery MD 12/27/2017 12:55 AM EDT
[2017-12-27 01:35] LABS: AUTOMATED NEUTROPHIL # 8.7 TH/MM3 (1.8-7.7); BASOPHIL # 0.1 TH/MM3 (0-0.2); BASOPHIL % 0.8 % (0.0-2.0); EOSINOPHIL # 0.2 TH/MM3 (0-0.4); EOSINOPHIL % 1.7 % (0.0-4.0); HEMATOCRIT 44.4 % (39.0-51.0); HEMOGLOBIN 14.5 GM/DL (13.0-17.0); LYMPH % 15.5 % (9.0-44.0); LYMPHOCYTE # 1.9 TH/MM3 (1.0-4.8); MEAN CELL VOLUME 84.1 FL (80.0-100.0); MEAN CORPUSCULAR HEMOGLOBIN 27.4 PG (27.0-34.0); MEAN CORPUSCULAR HGB CONC 32.6 % (32.0-36.0); MEAN PLATELET VOLUME 7.2 FL (7.0-11.0); MONO % 10.2 % (0.0-8.0); MONOCYTE # 1.2 TH/MM3 (0-0.9); NEUT % 71.8 % (16.0-70.0); PLATELET COUNT 335 TH/MM3 (150-450); RED BLOOD COUNT 5.27 MIL/MM3 (4.50-5.90); RED CELL DISTRIBUTION WIDTH 14.3 % (11.6-17.2); WHITE BLOOD COUNT 12.1 TH/MM3 (4.0-11.0)
[2017-12-27 01:55] LABS: ALBUMIN 3.1 GM/DL (3.4-5.0); ALT (GPT) 23 U/L (12-78); AST (GOT) 11 U/L (15-37); BICARBONATE 29.4 MEQ/L (21.0-32.0); BLOOD UREA NITROGEN 13 MG/DL (7-18); CALCIUM 8.6 MG/DL (8.5-10.1); CHLORIDE 99 MEQ/L (98-107); CREATININE 0.75 MG/DL (0.60-1.30); GLOMERULAR FILTRATION RATE 110 ML/MIN (>89); GLUCOSE,RANDOM 187 MG/DL (74-106); SODIUM (NA) 137 MEQ/L (136-145)
[2017-12-27 01:57] LABS: ALKALINE PHOSPHATASE 97 U/L (45-117); C-REACTIVE PROTEIN 7.64 MG/DL (0.00-0.30); TOTAL BILIRUBIN ADULT 0.3 MG/DL (0.2-1.0); TOTAL PROTEIN 7.4 GM/DL (6.4-8.2)
[2017-12-27 02:03] VITALS: BP 142/65; PULSE 90; RESP 20; O2SAT 94
[2017-12-27] MEDS ORDERED: CLEO300C2 PO (02:45)
[2017-12-27] MEDS ORDERED: CIPR-9 PO (02:45)
--- NOTE | 2017-12-27 02:49 | PD ---
Physical Exam Date Seen by Provider: Dec 27, 2017 Time Seen by Provider: 02:45 Narrative Skin: Patient has a diabetic foot ulcer to the plantar surface of the right foot. Data Data Last Documented VS Vital Signs Date Time Temp Pulse Resp B/P (MAP) Pulse Ox O2 Delivery O2 Flow Rate FiO2 12/27/17 02:03 90 20 142/65 (90) 94 Room Air 12/26/17 22:50 98.0 Orders Orders Complete Blood Count With Diff (12/27/17 00:16) Comprehensive Metabolic Panel (12/27/17 00:16) C-Reactive Protein (Crp) (12/27/17 00:16) Westergren Sedimentation Rate (12/27/17 00:16) Blood Culture (12/27/17 00:16) Lactic Acid (12/27/17 00:16) Foot, Complete ([id number]) (12/27/17 ) Albuterol-Ipratropium Neb (Duoneb Neb) (12/27/17 00:30) Ciprofloxacin 400 Mg Premix (Cipro 400 M (12/27/17 00:30) Clindamycin 600 Mg/Ns Premix (Cleocin 60 (12/27/17 00:30) Ed Discharge Order (12/27/17 02:43) Labs Laboratory Tests Test 12/27/17 01:02 12/27/17 01:07 White Blood Count 12.1 TH/MM3 Red Blood Count 5.27 MIL/MM3 Hemoglobin 14.5 GM/DL Hematocrit 44.4 % Mean Corpuscular Volume 84.1 FL Mean Corpuscular Hemoglobin 27.4 PG Mean Corpuscular Hemoglobin Concent 32.6 % Red Cell Distribution Width 14.3 % Platelet Count 335 TH/MM3 Mean Platelet Volume 7.2 FL Neutrophils (%) (Auto) 71.8 % Lymphocytes (%) (Auto) 15.5 % Monocytes (%) (Auto) 10.2 % Eosinophils (%) (Auto) 1.7 % Basophils (%) (Auto) 0.8 % Neutrophils # (Auto) 8.7 TH/MM3 Lymphocytes # (Auto) 1.9 TH/MM3 Monocytes # (Auto) 1.2 TH/MM3 Eosinophils # (Auto) 0.2 TH/MM3 Basophils # (Auto) 0.1 TH/MM3 CBC Comment DIFF FINAL Differential Comment Erythrocyte Sedimentation Rate 14 mm/hr Blood Urea Nitrogen 13 MG/DL Creatinine 0.75 MG/DL Random Glucose 187 MG/DL Total Protein 7.4 GM/DL Albumin 3.1 GM/DL Calcium Level 8.6 MG/DL Alkaline Phosphatase 97 U/L Aspartate Amino Transf (AST/SGOT) 11 U/L Alanine Aminotransferase (ALT/SGPT) 23 U/L Total Bilirubin 0.3 MG/DL Sodium Level 137 MEQ/L Potassium Level 4.1 MEQ/L Chloride Level 99 MEQ/L Carbon Dioxide Level 29.4 MEQ/L Anion Gap 9 MEQ/L Estimat Glomerular Filtration Rate 110 ML/MIN C-Reactive Protein 7.64 MG/DL Lactic Acid Level 1.2 mmol/L [facility] Medical Record Reviewed: Yes Supervised Visit with LOLY: Yes Interpretation(s) Laboratory Tests Test 12/27/17 01:02 12/27/17 01:07 White Blood Count 12.1 TH/MM3 Red Blood Count 5.27 MIL/MM3 Hemoglobin 14.5 GM/DL Hematocrit 44.4 % Mean Corpuscular Volume 84.1 FL Mean Corpuscular Hemoglobin 27.4 PG Mean Corpuscular Hemoglobin Concent 32.6 % Red Cell Distribution Width 14.3 % Platelet Count 335 TH/MM3 Mean Platelet Volume 7.2 FL Neutrophils (%) (Auto) 71.8 % Lymphocytes (%) (Auto) 15.5 % Monocytes (%) (Auto) 10.2 % Eosinophils (%) (Auto) 1.7 % Basophils (%) (Auto) 0.8 % Neutrophils # (Auto) 8.7 TH/MM3 Lymphocytes # (Auto) 1.9 TH/MM3 Monocytes # (Auto) 1.2 TH/MM3 Eosinophils # (Auto) 0.2 TH/MM3 Basophils # (Auto) 0.1 TH/MM3 CBC Comment DIFF FINAL Differential Comment Erythrocyte Sedimentation Rate 14 mm/hr Blood Urea Nitrogen 13 MG/DL Creatinine 0.75 MG/DL Random Glucose 187 MG/DL Total Protein 7.4 GM/DL Albumin 3.1 GM/DL Calcium Level 8.6 MG/DL Alkaline Phosphatase 97 U/L Aspartate Amino Transf (AST/SGOT) 11 U/L Alanine Aminotransferase (ALT/SGPT) 23 U/L Total Bilirubin 0.3 MG/DL Sodium Level 137 MEQ/L Potassium Level 4.1 MEQ/L Chloride Level 99 MEQ/L Carbon Dioxide Level 29.4 MEQ/L Anion Gap 9 MEQ/L Estimat Glomerular Filtration Rate 110 ML/MIN C-Reactive Protein 7.64 MG/DL Lactic Acid Level 1.2 mmol/L Last 24 hours Impressions Foot X-Ray 12/27/17 0000 Signed Impressions: CONCLUSION: Soft tissue swelling seen throughout the foot. There is chronic appearing perio steal reaction at the third through fifth metatarsals. The patient is status po st amputation of the first and second toes. One could further evaluate for oste omyelitis with a MRI examination. Last 24 hours Impressions Foot X-Ray 12/27/17 0000 Signed Impressions: CONCLUSION: Soft tissue swelling seen throughout the foot. There is chronic appearing perio steal reaction at the third through fifth metatarsals. The patient is status po st amputation of the first and second toes. One could further evaluate for oste omyelitis with a MRI examination. Differential Diagnosis . Narrative Course I have examined the patient. I reviewed the x-ray , Laboratory tests have been reviewed as well. The patient has a diabetic foot ulcer on the right side. I do not see any draining sinus of osteomyelitis. The wound does not penetrate into the subcutaneous skin. I have performed a sharp debridement of the diabetic foot ulcer. The patient slept through the whole procedure. The foot is cleansed and dressed by the nursing staff. The patient will be sent home with clindamycin as well as Cipro. He will be given the event planning intern stoker installation mechanic to follow-up with an next few days. He may return over the weekend of any problem develops. Diagnosis Primary Impression: Diabetic infection of right foot Referrals: Mariano Kearney DPM 2 days Patient Instructions: General Instructions Additional Instruction: Rest. Keep clean and dry. Elevate. Perform daily wound care with soap, water, dressing changes Cipro and clindamycin. Follow-up with podiatry stoker installation mechanic in the next 2 days. Follow-up with your primary care doctor in the next 1-2 days. Return to the ER over the weekend if any problems develop. Med/Other Pt SpecificInfo: Prescription(s) given Scripts Ciprofloxacin (Cipro) 500 Mg Tab 500 MG PO BID for Infection for 10 Days, #20 TAB 0 Refills Prov: Jaime Martin MD 12/27/17 Clindamycin (Cleocin) 300 Mg Cap 300 MG PO Q6H for Infection for 10 Days, #40 CAP 0 Refills Prov: Jaime Martin MD 12/27/17 Disposition: 01 DISCHARGE HOME Condition: Stable Richard Connolly Dec 27, 2017 02:49
== END 2017-12-27 04:05 | disposition home or self-care (01) ==
LOC: NEPD 19:54
DX: E13.628 Other specified diabetes mellitus with other skin complications (principal); L08.89 Other specified local infections of the skin and subcutaneous tissue; R06.02 Shortness of breath; R06.2 Wheezing; J44.9 Chronic obstructive pulmonary disease, unspecified; I11.0 Hypertensive heart disease with heart failure; I50.9 Heart failure, unspecified; I48.91 Unspecified atrial fibrillation; F17.210 Nicotine dependence, cigarettes, uncomplicated; Z89.421 Acquired absence of other right toe(s); Z79.01 Long term (current) use of anticoagulants; Z79.84 Long term (current) use of oral hypoglycemic drugs; Z79.899 Other long term (current) drug therapy
CPT/HCPCS: 73630; 80053; 83605; 85025; 85652; 86140; 87040; 94640; 94664; 96365; 96366; 96368; 99284; J0744